=== PATIENT | female | born 1965 | race Caucasian/White ===

== ENCOUNTER 2016-11-12 10:52 | Emergency (ER) | payer OTHER ==
[~2016-11-12] VITALS: Ht 162.6 cm; Wt 65.0 kg
[~2016-11-12 10:52] MED LIST: ESCI1TAB18 PO; NRN100 PO; RSP1 PO
[2016-11-12 11:00] VITALS: TEMP 36.6; Ht 162.6 cm; Wt 65.0 kg
[2016-11-12] MEDS ORDERED: VENL1CAP92 PO (11:02)
[2016-11-12] MEDS ORDERED: ONDANSETRON 4MG OD TAB ONE (12:10)
[2016-11-12 12:14] LABS: HEMATOCRIT 36.9 % (37-47); MEAN CELL VOLUME 95.6 fL (80-100); MEAN CORPUSCULAR HEMOGLOBIN 34.2 pg (25-34); MEAN CORPUSCULAR HGB CONC 35.8 g/dl (32-36); MEAN PLATELET VOLUME 9.5 fL (7.4-10.4); PLATELET COUNT 388 K/uL (130-400); RED BLOOD COUNT 3.86 M/uL (4.2-5.4)
[2016-11-12] MEDS ORDERED: ONDANSETRON 4MG OD TAB PO ONE (12:15)
--- NOTE | 2016-11-12 12:29 | EMERGENCY ROOM VISIT NOTE ---
History Report prepared by Hoda: Nasim Rivera Under the Supervision of: Dr. Kathy Monique D.O. First contact with patient: 11:04 Chief Complaint: MENTAL HEALTH EVALUATION Stated Complaint: MENTAL HEALTH History of Present Illness The patient is a 51 year old female who presents to the Emergency Room with complaints of crying outbursts and feeling paranoid today. The patient has a psychiatric history. She was recently discharged from the [facility] on September. At that time, she was discharged on Effexor and Klonopin. The patient stopped taking these medications a week ago because she did not think they were working. The patient notes that she is interested in getting help and is willing to go back to the [facility] because she wants to get back on a normal routine. She has not been eating in addition to not taking her medications. She thinks being admitted to a facility will help her reestablish a healthier routine. The patient makes one comment about being upset about a problem that is unresolved, however, she does not want to talk about it now. She denies suicidal and homicidal ideation at this time as well as any other medical complaints. Source of History: patient Onset: today Position: other (global) Note: Other associated symptoms: Not eating Denies: suicidal ideation, homicidal ideation, any other medical complaints. Review of Systems See HPI for pertinent positives & negatives. A total of 10 systems reviewed and were otherwise negative. Past Medical & Surgical Medical Problems: (1) Chronic abdominal pain (2) Colitis (3) Colonoscopy (4) Depression (5) Diverticulitis (6) Endoscopy (7) Functional abdominal pain syndrome (8) IRRITABLE BOWEL SYNDROME (9) Orthopedic Surgery (10) REFLUX ESOPHAGITIS Family History Diabetes mellitus Heart disease Social History Smoking Status: Current Every Day Smoker Alcohol Use: occasionally Drug Use: none Marital Status: Housing Status: lives with family Occupation Status: unemployed Current/Historical Medications Scheduled Clonazepam (Clonazepam), 1 MG PO BID Gabapentin (Gabapentin), 300 MG PO HS Perphenazine (Trilafon), 4 MG PO BID Perphenazine (Trilafon), 2 MG PO HS Venlafaxine Hcl (Effexor Xr), 37.5 MG PO TID Scheduled PRN Acetaminophen (Tylenol), 500 MG PO Q6H PRN for Pain or Fever Ondasetron Odt (Zofran Odt), 4-8 MG UT Q6H PRN for Nausea Promethazine HCl (Promethazine HCl), 25 MG PO Q8 PRN for Nausea or Vomiting Trazodone Hcl (Desyrel), 50 MG PO HS PRN for Sleep Allergies Coded Allergies: Adhesives (Verified Allergy, Intermediate, PAPER TAPE - SKIN IRRITATION, ) Amoxicillin (Verified Adverse Reaction, Unknown, Abdominal pain and nausea , 11/12/16) Clavulanic Acid (Verified Adverse Reaction, Unknown, Abdominal pain and nausea, 11/12/16) Physical Exam Vital Signs Date Time Temp Pulse Resp B/P Pulse Ox O2 Delivery O2 Flow Rate FiO2 11/12/16 15:15 102 18 126/70 97 11/12/16 13:00 100 16 110/73 98 11/12/16 11:00 36.6 100 20 147/93 97 Room Air Physical Exam General: Pleasant, cooperative on exam HEENT: Head - normocephalic and atraumatic Pupils are equal, round, and reactive to light. Extraocular eye muscles are intact, and sclera are anicteric. Nose - moist nasal mucosa without discharge. Mouth - moist buccal mucosa. Oropharynx is nonerythematous and there is no tonsillar exudate or edema noted. Neck: Supple; no JVD, nuchal rigidity, cervical lymphadenopathy. Heart: Regular rate and rhythm. There is a normal S1 and S2 with no murmurs, clicks, or gallops appreciated. Lungs: Clear to auscultation bilaterally with no wheezes, rales, or rhonchi. Abdomen: Soft, completely nontender, nondistended, with good bowel sounds. There are no palpable pulsatile masses or hepatosplenomegaly. There is no guarding, rigidity, or rebound noted. Extremities: No evidence of cyanosis, clubbing, or edema. There are easily palpable peripheral pulses. Skin: warm and dry with good turgor and no rashes. Psych: Tangential thought process, slightly hyperverbal, denies suicidal or homicidal ideation. Medical Decision & Procedures Laboratory Results 11/12/16 11:50 11/12/16 11:50 Test 11/12/16 00:00 11/12/16 11:50 Urine Opiates Screen NEG (NEG) Urine Methadone, Qualitative NEG (NEG) Urine Barbiturates NEG (NEG) Urine Phencyclidine (PCP) Level NEG (NEG) Ur Amphetamine/Methamphetamine NEG (NEG) MDMA (Ecstasy) Screen NEG (NEG) Urine Benzodiazepines Screen NEG (NEG) Urine Cocaine Metabolite NEG (NEG) Urine Marijuana (THC) POS (NEG) Red Blood Count 3.86 M/uL (4.2-5.4) Mean Corpuscular Volume 95.6 fL (80-100) Mean Corpuscular Hemoglobin 34.2 pg (25-34) Mean Corpuscular Hemoglobin Concent 35.8 g/dl (32-36) RDW Standard Deviation 44.6 fL (36.4-46.3) RDW Coefficient of Variation 12.9 % (11.5-14.5) Mean Platelet Volume 9.5 fL (7.4-10.4) Anion Gap 10.0 mmol/L (3-11) Est Creatinine Clear Calc Drug Dose 76.7 ml/min Estimated GFR () 107.0 Estimated GFR (Non- 92.3 BUN/Creatinine Ratio 9.5 (10-20) Calcium Level 8.6 mg/dl (8.5-10.1) Total Bilirubin 0.6 mg/dl (0.2-1) Direct Bilirubin 0.1 mg/dl (0-0.2) Aspartate Amino Transf (AST/SGOT) 8 U/L (15-37) Alanine Aminotransferase (ALT/SGPT) 19 U/L (12-78) Alkaline Phosphatase 53 U/L (45-117) Total Protein 7.1 gm/dl (6.4-8.2) Albumin 4.0 gm/dl (3.4-5.0) Thyroid Stimulating Hormone (TSH) 0.863 uIu/ml (0.300-4.500) Salicylates Level 2.5 mg/dl (2.8-20) Acetaminophen Level < 2 ug/ml (10-30) Ethyl Alcohol mg/dL < 3.0 mg/dl (0-3) Laboratory results per my review. Medications Administered Medications (Trade) Dose Ordered Sig/Rafia Route Start Time Stop Time Status Last Admin Dose Admin Ondansetron HCl (Zofran Odt) 4 mg ONE ONCE PO 11/12/16 12:15 11/12/16 12:16 DC 11/12/16 12:15 4 MG Procedure Medications: Zofran Odt .ROUTE, Zofran Odt PO. ED Course 1145: Past medical records reviewed. The patient was evaluated in room A6. A complete history and physical exam was performed. Labs were drawn as above. 1215: The patient complained of some nausea and I Ordered Zofran Odt 4 mg 1305: At this time, the patient was medically cleared and a referral was sent to the [facility]. 1345: At this time, the patient was accepted by the [facility]. They will arrange for transport. Medical Decision The patient is a 51 year old female who presents to the ED with crying outbursts and paranoia. Differential diagnosis includes acute psychosis, medication noncompliance, mood disorder, and thought disorder. Labs: Normal white count, stable h&h, normal TSH, normal LFTs, normal glucose and renal function, Salicylate 2.2, Tylenol less than 2, Alcohol less than 3, Tox screen positive for marijuana. This is a patient with a history of previous admissions for inpatient psychiatric care. She is not currently taking her medications. She is requesting inpatient treatment to get back on her meds. Patient has some paranoia and has made some questionable statements about suicide and homicide. She is currently willing to admit herself voluntarily to the [facility]. Impression Primary Impression: Mood disorder Additional Impression: Noncompliance with medications Scribe Attestation The scribe's documentation has been prepared under my direction and personally reviewed by me in its entirety. I confirm that the note above accurately reflects all work, treatment, procedures, and medical decision making performed by me. Departure Information Dispostion [facility] Acute Care ([place]) Referrals Yonathan Carlos M.D. (PCP) Patient Instructions My [facility] Problem Qualifiers
[2016-11-12 12:34] LABS: BUN/CREATININE RATIO 9.5 (10-20); CALCIUM 8.6 mg/dl (8.5-10.1); CREATININE 0.75 mg/dl (0.60-1.20)
[2016-11-12 12:45] LABS: THYROID STIMULATING HORMONE 0.863 uIu/ml (0.300-4.500)
[2016-11-12 12:48] LABS: BENZODIAZEPINE, URINE NEG (NEG); COCAINE,URINE NEG (NEG); PHENCYCLIDINE, URINE NEG (NEG)
[2016-11-12 12:53] LABS: ACETAMINOPHEN < 2 ug/ml (10-30)
[2016-11-12 15:15] VITALS: BP 126/70; PULSE 102; O2SAT 97
[2016-12-22] MEDS ORDERED: PERP1TAB10 PO (11:02)
[2016-12-22] MEDS ORDERED: PERP1TAB5 PO (11:02)
[2016-12-22] MEDS ORDERED: PROM25TA16 PO (11:36)
[2016-12-22] MEDS ORDERED: TYLOTC500 PO (12:48)
[2016-12-29] MEDS ORDERED: FLUO20CA36 PO (08:28)
== END 2016-11-12 15:17 ==
LOC: EDBD 10:52 → C.EDA 10:54
DX: F39 Unspecified mood [affective] disorder (principal); Z91.14 Patient's other noncompliance with medication regimen; F17.200 Nicotine dependence, unspecified, uncomplicated; G89.29 Other chronic pain; R10.9 Unspecified abdominal pain; K58.9 Irritable bowel syndrome, unspecified

== ENCOUNTER 2016-12-11 10:55 | Emergency (ER) | payer OTHER ==
[~2016-12-11] VITALS: Ht 157.5 cm; Wt 55.3 kg
[~2016-12-11 10:55] MED LIST changes: -ESCI1TAB18 PO; -RSP1 PO; +VENL1CAP92 PO
[2016-12-11] MEDS ORDERED: SODIUM CHLORIDE 0.9% 1000ML 1,000 ML IV STA (11:26)
[2016-12-11 11:27] VITALS: Ht 157.5 cm; Wt 55.3 kg
[2016-12-11 11:28] VITALS: O2SAT 99
[2016-12-11] MEDS ORDERED: VENL75CA PO (11:28)
[2016-12-11] MEDS ORDERED: LORAZEPAM 2 MG/ML 1 ML VIAL IV STA ×2 (11:37→16:04)
[2016-12-11 11:40] LABS: URINE APPEARANCE CLOUDY (CLEAR); URINE BILIRUBIN NEG (NEG); URINE COLOR ORANGE; URINE EPITHELIAL CELL AUTO >30 /lpf (0-5); URINE NITRITE NEG (NEG); URINE PH 6.5 (4.5-7.5); URINE SPECIFIC GRAVITY 1.001 (1.000-1.030); UROBILINOGEN NEG (NEG)
[2016-12-11 11:42] LABS: MANUAL MICROSCOPIC REQUIRED? NO; REVIEW REQ? YES
[2016-12-11 12:17] LABS: BASO % 0.2 %; BASO ABS # 0.02 K/uL (0-0.2); COMPLETE YES; EOS % 1.2 %; HEMATOCRIT 37.4 % (37-47); IG% 0.3 %; LYMPH ABS # 2.62 K/uL (1.2-3.4); MEAN CELL VOLUME 95.7 fL (80-100); MEAN CORPUSCULAR HEMOGLOBIN 34.3 pg (25-34); MEAN CORPUSCULAR HGB CONC 35.8 g/dl (32-36); MEAN PLATELET VOLUME 9.4 fL (7.4-10.4); MONO % 5.7 %; NEUT % 69.6 %; PLATELET COUNT 427 K/uL (130-400); RED BLOOD COUNT 3.91 M/uL (4.2-5.4); WHITE BLOOD COUNT 11.37 K/uL (4.8-10.8)
[2016-12-11 12:28] LABS: INR 0.9 (0.9-1.1); PARTIAL THROMBOPLASTIN RATIO 0.9; PROTHROMBIN TIME (PATIENT) 9.9 SECONDS (9.0-12.0)
[2016-12-11] MEDS ORDERED: CALCIUM CARBONATE 500 MG CHEWABLE PO STA (12:30)
[2016-12-11 12:36] LABS: ALT/SGPT 18 U/L (12-78); BLOOD UREA NITROGEN 14 mg/dl (7-18); BUN/CREATININE RATIO 19.3 (10-20); CALCIUM 9.4 mg/dl (8.5-10.1); CARBON DIOXIDE 20 mmol/L (21-32); CHLORIDE 107 mmol/L (98-107); CREATININE 0.73 mg/dl (0.60-1.20); GLUCOSE 100 mg/dl (70-99); MAGNESIUM 2.2 mg/dl (1.8-2.4); POTASSIUM 3.9 mmol/L (3.5-5.1); SODIUM 140 mmol/L (136-145)
[2016-12-11 12:47] LABS: ALKALINE PHOSPHATASE 52 U/L (45-117); AST/SGOT 9 U/L (15-37)
[2016-12-11 17:59] VITALS: BP 115/82; PULSE 80; TEMP 36.6; O2SAT 99
--- NOTE | 2016-12-11 18:46 | EMERGENCY ROOM VISIT NOTE ---
History Report prepared by Hoda: Lane Posada Under the Supervision of: Dr. Pool Rios M.D. First contact with patient: 11:24 Chief Complaint: ANXIETY Stated Complaint: ANXIETY History of Present Illness The patient is a 51 year old female who presents to the Emergency Room with complaints of worsening anxiety that began 2 years ago. She was on the phone with an acute clinic nurse and was suggested to come to the ER. The patient states that she has been "distraught" and cannot function anymore. She says that she needs someone to talk to. She says that her triggers for her anxiety are nonstop. She states that she is going through major life change where she is moving out of her house that she has been living in for 20 years. She is scared of the idea of being unsafe and uncomfortable in a new place. She is scared of living in [place]. She notes diaphoresis with being worked up. The patient has been to the [facility] twice as an inpatient. The patient states that she has undiagnosed neuropathy with vomiting and abdominal pain. She says she has PTSD secondary to many life experiences. Patient denies LOC, headache, fevers, chills, visual changes, neck pain, chest pain, breathing difficulties, nausea, current vomiting, current abdominal pain, back pain, melena, hematochezia, urinary symptoms, numbness, weakness, lymphadenopathy, rash, or other complaints. She denies any thoughts of hurting herself or others. Source of History: patient Onset: two years ago Position: other (global) Symptom Intensity: moderate Quality: other (anxiety) Timing: worsening Associated Symptoms: + diaphoresis Review of Systems See HPI for pertinent positives and negatives. A total of ten systems were reviewed and were otherwise negative. Past Medical & Surgical Medical Problems: (1) Chronic abdominal pain (2) Colitis (3) Colonoscopy (4) Depression (5) Diverticulitis (6) Endoscopy (7) Functional abdominal pain syndrome (8) IRRITABLE BOWEL SYNDROME (9) Orthopedic Surgery (10) REFLUX ESOPHAGITIS Family History Diabetes mellitus Heart disease Social History Smoking Status: Never Smoker Smokeless Tobacco Use: No Alcohol Use: none Drug Use: marijuana Marital Status: Housing Status: lives with family Occupation Status: unemployed Current/Historical Medications Scheduled Clonazepam (Clonazepam), 1 MG PO BID Gabapentin (Gabapentin), 200 MG PO BID Perphenazine (Trilafon), 4 MG PO BID Perphenazine (Trilafon), 2 MG PO QPM Venlafaxine Hcl (Effexor Xr), 37.5 MG PO QAM Venlafaxine Hcl (Effexor Xr), 75 MG PO UD Scheduled PRN Acetaminophen (Tylenol), 500 MG PO Q6H PRN for Pain or Fever Ondasetron Odt (Zofran Odt), 4-8 MG UT Q6H PRN for Nausea Promethazine HCl (Promethazine HCl), 25 MG PO Q8 PRN for Nausea or Vomiting Trazodone Hcl (Desyrel), 50 MG PO HS PRN for Sleep Allergies Coded Allergies: Adhesives (Verified Allergy, Intermediate, PAPER TAPE - SKIN IRRITATION, ) Amoxicillin (Verified Adverse Reaction, Unknown, Abdominal pain and nausea , 12/11/16) Clavulanic Acid (Verified Adverse Reaction, Unknown, Abdominal pain and nausea, 12/11/16) Physical Exam Vital Signs Date Time Temp Pulse Resp B/P Pulse Ox O2 Delivery O2 Flow Rate FiO2 12/11/16 17:59 36.6 80 20 115/82 99 12/11/16 12:07 80 20 115/82 99 Room Air 12/11/16 11:28 99 Room Air 12/11/16 10:56 36.6 86 18 108/76 99 Room Air Physical Exam GENERAL: Awake, alert, well appearing, no distress. HENT: Normocephalic, atraumatic. TM's normal. Oropharynx unremarkable. EYES: PERRL. EOMI. Normal conjunctiva. Sclera non-icteric. NECK: Supple. No nuchal rigidity. FROM. No JVD or bruit. RESPIRATORY: CTA CARDIAC: RRR. No murmur. ABDOMEN: Soft, non distended. No tenderness to palpation. No rebound or guarding. No masses. MUSCULOSKELETAL: Unremarkable. No edema. No discoloration. Gross motor strength symmetric. NEURO: Cranial nerves 2-12 grossly intact. Normal sensorium. No sensory or motor deficits noted. Speech normal. No pronator drift. SKIN: No rash or jaundice noted. LYMPH: No adenopathy. PSYCH: Easily agitated, extremely anxious mood. No suicidal ideation. No homicidal ideation. Medical Decision & Procedures Laboratory Results 12/11/16 12:05 Red Blood Count 3.91, Mean Corpuscular Volume 95.7, Mean Corpuscular Hemoglobin 34.3, Mean Corpuscular Hemoglobin Concent 35.8, Mean Platelet Volume 9.4, Neutrophils (%) (Auto) 69.6, Lymphocytes (%) (Auto) 23.0, Monocytes (%) (Auto) 5.7, Eosinophils (%) (Auto) 1.2, Basophils (%) (Auto) 0.2, Neutrophils # (Auto) 7.91, Lymphocytes # (Auto) 2.62, Monocytes # (Auto) 0.65, Eosinophils # (Auto) 0.14, Basophils # (Auto) 0.02 12/11/16 12:05 Test 12/11/16 11:03 12/11/16 12:05 Urine Color ORANGE Urine Appearance CLOUDY (CLEAR) Urine pH 6.5 (4.5-7.5) Urine Specific [place] 1.001 (1.000-1.030) Urine Protein NEG (NEG) Urine Glucose (UA) NEG (NEG) Urine Ketones NEG (NEG) Urine Occult Blood 3+ (NEG) Urine Nitrite NEG (NEG) Urine Bilirubin NEG (NEG) Urine Urobilinogen NEG (NEG) Urine Leukocyte Esterase NEG (NEG) Urine WBC (Auto) 1-5 /hpf (0-5) Urine RBC (Auto) >30 /hpf (0-4) Urine Hyaline Casts (Auto) 1-5 /lpf (0-5) Urine Epithelial Cells (Auto) >30 /lpf (0-5) Urine Bacteria (Auto) NEG (NEG) Urine Yeast (Auto) (NONE PRSENT) White Blood Count 11.37 K/uL (4.8-10.8) Red Blood Count 3.91 M/uL (4.2-5.4) Hemoglobin 13.4 g/dL (12.0-16.0) Hematocrit 37.4 % (37-47) Mean Corpuscular Volume 95.7 fL (80-100) Mean Corpuscular Hemoglobin 34.3 pg (25-34) Mean Corpuscular Hemoglobin Concent 35.8 g/dl (32-36) Platelet Count 427 K/uL (130-400) Mean Platelet Volume 9.4 fL (7.4-10.4) Neutrophils (%) (Auto) 69.6 % Lymphocytes (%) (Auto) 23.0 % Monocytes (%) (Auto) 5.7 % Eosinophils (%) (Auto) 1.2 % Basophils (%) (Auto) 0.2 % Neutrophils # (Auto) 7.91 K/uL (1.4-6.5) Lymphocytes # (Auto) 2.62 K/uL (1.2-3.4) Monocytes # (Auto) 0.65 K/uL (0.11-0.59) Eosinophils # (Auto) 0.14 K/uL (0-0.5) Basophils # (Auto) 0.02 K/uL (0-0.2) RDW Standard Deviation 50.9 fL (36.4-46.3) RDW Coefficient of Variation 14.6 % (11.5-14.5) Immature Granulocyte % (Auto) 0.3 % Immature Granulocyte # (Auto) 0.03 K/uL (0.00-0.02) Prothrombin Time 9.9 SECONDS (9.0-12.0) Prothromb Time International Ratio 0.9 (0.9-1.1) Activated Partial Thromboplast Time 24.6 SECONDS (21.0-31.0) Partial Thromboplastin Ratio 0.9 Anion Gap 13.0 mmol/L (3-11) Est Creatinine Clear Calc Drug Dose 72.1 ml/min Estimated GFR () 110.5 Estimated GFR (Non- 95.4 BUN/Creatinine Ratio 19.3 (10-20) Calcium Level 9.4 mg/dl (8.5-10.1) Magnesium Level 2.2 mg/dl (1.8-2.4) Total Bilirubin 0.2 mg/dl (0.2-1) Direct Bilirubin < 0.1 mg/dl (0-0.2) Aspartate Amino Transf (AST/SGOT) 9 U/L (15-37) Alanine Aminotransferase (ALT/SGPT) 18 U/L (12-78) Alkaline Phosphatase 52 U/L (45-117) Total Protein 7.2 gm/dl (6.4-8.2) Albumin 3.9 gm/dl (3.4-5.0) Lipase 166 U/L (73-393) Thyroid Stimulating Hormone (TSH) 1.400 uIu/ml (0.300-4.500) Laboratory results reviewed by me Medications Administered Medications (Trade) Dose Ordered Sig/Rafia Route Start Time Stop Time Status Last Admin Dose Admin Sodium Chloride (Nss 1000ml) 1,000 ml @ 999 mls/hr Q1H1M STAT IV 12/11/16 11:26 12/11/16 12:26 DC 12/11/16 12:06 999 MLS/HR Lorazepam (Ativan Inj) 1 mg NOW STAT IV 12/11/16 11:37 12/11/16 11:40 DC 12/11/16 12:06 1 MG Calcium Carbonate (Tums Chew Tab) 1,500 mg NOW STAT PO 12/11/16 12:30 12/11/16 12:31 DC 12/11/16 12:37 1,500 MG Lorazepam (Ativan Inj) 1 mg NOW STAT IV 12/11/16 16:04 12/11/16 16:05 DC 12/11/16 16:15 1 MG ECG Indication: other (anxiety) Rate (beats per minute): 82 Rhythm: normal sinus Findings: Q waves (Septal), no acute ischemic change ED Course 1124: The patient was evaluated in room C10. A complete history and physical exam was performed. 1126: Sodium Chloride 1000 ml @ 999 mls/hr IV 1137: Lorazepam 1 mg IV 1225: The patient asked for Tums at this time. 1230: Tums Chew Tab 1500 mg PO 1604: Lorazepam 1 mg IV 1605: We are waiting to hear back from the [facility] for the patient. She was more anxious, so we gave her more Lorazepam. 1652: The patient was accepted to the [facility]. We are awaiting her ride. Medical Decision Triage Nursing notes reviewed. The patient's presentation and history were concerning for severe anxiety. Etiologies such as mood disorder, toxicologic, infection, hypoglycemia, electrolyte abnormalities, cardiac sources, intracerebral event, neurologic, as well as others were entertained. Patient was evaluated. She clearly outlined that she was not here for her GI symptoms although that has been an ongoing issue for her. Currently her GI symptoms are minimal. She is very anxious. She feels dehydrated. The patient also did want something for anxiety. The patient was treated with Ativan 1 mg IV 2 during her time in the emergency department. She is doing well with this. The patient was evaluated by psychiatric case management. The patient was referred to the [facility]. Her blood work showed a subtle leukocytosis at 11, 000. RBCs are noted on urinalysis but no signs of infection otherwise. The patient had unremarkable chemistries and LFTs. The patient was accepted at the [facility]. Urine culture was sent. Patient was transferred via secure measures to the [facility] for further evaluation. By the evaluation outlined above other emergent etiologies such as those listed in the differential, as well as others, were deemed relatively unlikely. The patient was informed about the findings as listed above. All questions were answered and she was pleased with the treatment. Return instructions were outlined and the patient was discharged in stable condition. The chart was completed utilizing [employer] voice recognition software. Grammatical errors, random word insertions, pronoun errors, and incomplete sentences are an occasional consequence of this system due to software limitations, ambient noise, and hardware issues. Any formal questions or concerns about the content, text, or information contained within the body of this dictation should be directly addressed to the physician for clarification. Impression Primary Impression: Mood disorder Scribe Attestation The scribe's documentation has been prepared under my direction and personally reviewed by me in its entirety. I confirm that the note above accurately reflects all work, treatment, procedures, and medical decision making performed by me. Departure Information Dispostion Mental Health Acute Care Referrals Yonathan Carlos M.D. (PCP) Patient Instructions My [facility]
[2016-12-22] MEDS ORDERED: PERP1TAB10 PO (11:02)
[2016-12-22] MEDS ORDERED: PERP1TAB5 PO (11:02)
[2016-12-22] MEDS ORDERED: PROM25TA16 PO (11:36)
[2016-12-22] MEDS ORDERED: TYLOTC500 PO (12:48)
[2016-12-29] MEDS ORDERED: FLUO20CA36 PO (08:28)
== END 2016-12-11 18:01 ==
LOC: EDBD 10:55 → C.EDC 10:56 → C.EDA 18:01
DX: F32.9 Major depressive disorder, single episode, unspecified (principal); K58.9 Irritable bowel syndrome, unspecified

== ENCOUNTER 2016-12-18 10:47 | Emergency (ER) | payer OTHER ==
[~2016-12-18] VITALS: Ht 157.5 cm; Wt 59.0 kg
[~2016-12-18 10:47] MED LIST changes: +VENL75CA PO
[2016-12-18 10:54] VITALS: TEMP 36.9; Ht 157.5 cm; Wt 59.0 kg
[2016-12-18] MEDS ORDERED: ASPI-391 (11:13)
[2016-12-18] MEDS ORDERED: MIRT15TA2 PO (11:13)
[2016-12-18] MEDS ORDERED: SODIUM CHLORIDE 0.9% 1000ML 1,000 ML IV STA (11:59)
[2016-12-18] MEDS ORDERED: LORAZEPAM 2 MG/ML 1 ML VIAL IV STA (11:59)
[2016-12-18] MEDS ORDERED: KETOROLAC TROMETHAMINE 30 MG/ML VIAL IV STA (11:59)
[2016-12-18] MEDS ORDERED: DiphenhydrAMINE HCL 50 MG/ML VIAL IV STA (11:59)
[2016-12-18] MEDS ORDERED: PROCHLORPERAZINE 5 MG/ML 2 ML VIAL IM STA (11:59)
[2016-12-18] MEDS ORDERED: DEXAMETHASONE SOD INJ 4 MG/ML VIAL IV STA (11:59)
[2016-12-18 12:19] LABS: URINE APPEARANCE CLEAR (CLEAR); URINE BILIRUBIN NEG (NEG); URINE COLOR YELLOW; URINE NITRITE NEG (NEG); URINE SPECIFIC GRAVITY 1.007 (1.000-1.030); UROBILINOGEN NEG (NEG)
[2016-12-18 12:20] LABS: MANUAL MICROSCOPIC REQUIRED? NO; REVIEW REQ? NO
[2016-12-18 12:51] LABS: BENZODIAZEPINE, URINE NEG (NEG); COCAINE,URINE NEG (NEG); PHENCYCLIDINE, URINE NEG (NEG)
[2016-12-18 12:52] LABS: BASO % 0.3 %; BASO ABS # 0.02 K/uL (0-0.2); COMPLETE YES; EOS % 4.5 %; HEMATOCRIT 32.2 % (37-47); LYMPH % 36.2 %; LYMPH ABS # 2.68 K/uL (1.2-3.4); MEAN CELL VOLUME 94.2 fL (80-100); MEAN CORPUSCULAR HGB CONC 35.1 g/dl (32-36); MEAN PLATELET VOLUME 9.3 fL (7.4-10.4); MONO % 6.6 %; NEUT % 52.4 %; PLATELET COUNT 365 K/uL (130-400); RED BLOOD COUNT 3.42 M/uL (4.2-5.4)
--- NOTE | 2016-12-18 13:10 | DIAGNOSTIC IMAGING REPORT ---
CT HEAD WITHOUT CONTRAST (CT) CLINICAL HISTORY: Severe headache COMPARISON STUDY: 09/03/2013 TECHNIQUE: Axial CT of the brain is performed from the vertex to the skull base. IV contrast was not administered for this examination. CT DOSE: 537.48 mGy.cm FINDINGS: No intra or extra-axial mass lesions are visualized. There is no CT evidence of acute cortical infarction. There is no evidence of midline shift. There is no acute hemorrhage. No calvarial fractures are visualized. There is no evidence of pathologic ventricular dilatation. There is no evidence of acute sinusitis IMPRESSION: Normal noncontrast head CT for age. Electronically signed by: Milton Fragoso M.D. 12/18/2016 1:09 PM Dictated Date/Time: 12/18/2016 1:08 PM
[2016-12-18 13:19] LABS: BUN/CREATININE RATIO 26.2 (10-20); CALCIUM 8.4 mg/dl (8.5-10.1); CREATININE 0.64 mg/dl (0.60-1.20)
[2016-12-18 13:30] LABS: THYROID STIMULATING HORMONE 1.59 uIu/ml (0.300-4.500)
[2016-12-18] MEDS ORDERED: IBUP-103 PO (13:47)
[2016-12-18 13:48] VITALS: BP 104/72; PULSE 82; O2SAT 98
--- NOTE | 2016-12-20 16:15 | EMERGENCY ROOM VISIT NOTE ---
ED Visit Note First contact with patient: 11:50 CHIEF COMPLAINT: Migraine headache. HISTORY OF PRESENT ILLNESS: Ms. Ann is a 51 year-old white female who ambulates into the ED via complaining of a migraine headache. She reports a acute onset of a severe headache that started 4 days ago after she received notification that she was going to be removed from her housing. The pain is constant and severe in severity. She denies any previous history of headaches and reports this is the worst headache of her life. Currently she describes the headache as a viselike pressure sensation to the top of her head. She rates the pain a 8/10. The pain is nonradiating. She reports she has been taking ibuprofen without relief of pain. She has not identified any alleviating factors related to the pain. She has not identified any aggravating factors related to the pain. There is been associated light sensitivity, nausea but no vomiting. She denies fevers, chills or sweats, skin eruptions, skin color changes, dizziness, lightheadedness, recent head trauma, visual changes, hearing changes , difficulty speaking, difficulty swallowing, difficulty ambulating/ coordinating body, upper respiratory tract symptoms, sinus congestion, recent dental trauma or dental work, sore throat, neck pain/stiffness, voice changes, hearing changes, chest pain, shortness of breath, abdominal pain, extremity weakness/numbness/tingling. REVIEW OF SYSTEMS: As noted above in History of Present Illness; all body systems were reviewed with the patient and found to be negative unless noted above otherwise. PAST MEDICAL HISTORY: (1) Chronic abdominal pain (2) Colitis (3) Colonoscopy (4) Depression (5) Diverticulitis (6) Endoscopy (7) Functional abdominal pain syndrome (8) IRRITABLE BOWEL SYNDROME (9) Orthopedic Surgery (10) REFLUX ESOPHAGITIS CURRENT MEDICATIONS: Medications Dose Route/Sig Max Daily Dose Days Date Category Dose Instructions Excedrin Extra Strength (Afmaqrf-Anzakuybwgqjl-Iajpxpvt) 1 Tab Tab 12/18/16 Reported Remeron Soltab (Mirtazapine) 15 Mg Soltab 15 Mg PO 12/18/16 Reported Effexor Xr (Venlafaxine Hcl) 75 Mg Cap 75 Mg PO UD 12/11/16 Reported Trilafon (Perphenazine) 2 Mg Tab 2 Mg PO QPM 11/12/16 Reported TAKE WITH 4 MG TOTAL DOSE QPM 6MG Trilafon (Perphenazine) 4 Mg Tab 4 Mg PO BID 11/12/16 Reported Effexor Xr (Venlafaxine Hcl) 37.5 Mg Cap 37.5 Mg PO QAM 11/12/16 Reported Desyrel (Trazodone Hcl) 50 Mg Tab 50 Mg PO HS PRN 10/13/16 Reported Promethazine HCl 25 Mg Tab 25 Mg PO Q8 PRN 05/05/16 Reported Gabapentin 100 Mg Cap 900 Mg PO DAILY 04/21/16 Reported Tylenol (Acetaminophen) 500 Mg Tab 500 Mg PO Q6H PRN 12/28/15 Reported Zofran Odt (Ondansetron HCl) 4 Mg Tab 4-8 Mg UT Q6H PRN 11/25/14 Reported Clonazepam 1 Mg Tab 1 Mg PO BID 11/25/14 Reported Advil (Ibuprofen) 200 Mg Tab 400-600 Mg PO Q6H PRN 5 12/18/16 Rx ALLERGIES TO MEDICATIONS: Augmentin. SOCIAL HISTORY: Patient is not employed; she feels safe in her home environment ; she denies tobacco and alcohol use. PHYSICAL EXAM: Vital Signs: Date Time Temp Pulse Resp B/P Pulse Ox O2 Delivery O2 Flow Rate FiO2 12/18/16 13:48 82 16 104/72 98 Room Air 12/18/16 13:20 79 12/18/16 13:13 78 18 171/97 99 Room Air 12/18/16 12:32 81 18 109/73 99 Room Air 12/18/16 10:54 36.9 83 16 100/66 94 Room Air GENERAL: 51 year-old white female in moderate distress due to pain, afebrile and hemodynamically stable. Found lying in a darkened room with sunglasses on. NEUROLOGIC: Awake, alert and oriented to person place and time. Answering questions appropriately and following commands. Cranial nerves II-XII grossly intact. No focal neurologic deficits noted. Romberg test negative. Pronator drift test negative. Short-term and long-term recall. Normal rapid only movements of the hands and fingers. Refuses a spell her count backwards. Patient is very anxious. SKIN: Warm, dry and pink. No rashes, lesions or soft tissue trauma noted. HEENT: Normocephalic, atraumatic. No erythema or tenderness over the frontal maxillary sinuses. External ear is nontender. Auditory canals are not erythematous or edematous. PERRLA. EOMI without nystagmus. Funduscopic examination shows a normal optic disc and no signs of increased intracranial pressure. Sclerae white and conjunctiva is pink without drainage. No signs of facial trauma. No malocclusion. Airway patent. Speech is clear. Posterior pharyngeal area is not erythematous or edematous. No JVD. Trachea midline. BACK: No tenderness over the cervical, thoracic or lumbar bony spines. No tenderness to trauma the paraspinous musculature and no palpable spasm. Full range of motion of the cervical spine. No meningismus. No CVA tenderness.. THORAX: Lungs clear to auscultation and equal bilaterally with no wheezing, crackles, rhonchi or stridor and equal chest wall movements. HEART: Regular rate and rhythm with no murmurs, rubs or gallops. ABDOMEN: Soft and nontender with bowel sounds present in all quadrants; no rigidity, rebound tenderness, organomegaly or guarding. MUSCULOSKELETAL: Full range of motion of all joints without any significant discomfort and the gait is normal. ED COURSE: Patient is assessed with history and physical examination. Patient was hydrated with normal saline, she received 30 mg of Toradol IV, 10 mg of Decadron IV, 10 mg of Compazine IV and 30 mg of Toradol IV. Patient was reassessed multiple times during her stay in the emergency department. Patient's case was reviewed with Dr. Lemus; we agreed on diagnostic approach , treatment, disposition and plan. Patient was educated about her condition and instructed on her treatment plan; she verbalized understanding and agreement with this plan. CLINICAL IMPRESSION: Anxiety in acute stress reaction DECISION MAKIN-year-old female who presents for evaluation of headache. She is afebrile, well appearing, and hemodynamically stable. She has no signs of a sinus, dental , or ear infection and no evidence of meningismus. She is neurologically intact. I do not suspect a headache to be secondary to a subarachnoid hemorrhage, meningitis, encephalitis, or intracranial mass lesion. DISPOSITION: Patient was discharged to home in stable condition; she verbalizes understanding and agreement with this plan. On discharge patient was reassessed and reported her pain at a level of 4/10 scale which was an improvement of a XX on admission to the department. DISCHARGE INSTRUCTIONS: Rest at home, in a quiet darkened room and allow the medication to work for the pain. Continue to follow up current treatment plan prescribed by your physician for your migraine headaches. See your own doctor in follow-up this week for continued care and treatment. Return to the emergency department as needed or in accordance with her pain management plan.
[2016-12-22] MEDS ORDERED: PERP1TAB10 PO (11:02)
[2016-12-22] MEDS ORDERED: PERP1TAB5 PO (11:02)
[2016-12-22] MEDS ORDERED: PROM25TA16 PO (11:36)
[2016-12-22] MEDS ORDERED: TYLOTC500 PO (12:48)
[2016-12-29] MEDS ORDERED: FLUO20CA36 PO (08:28)
== END 2016-12-18 14:10 | disposition home or self-care (01) ==
LOC: C.EDB 10:48
DX: G43.909 Migraine, unspecified, not intractable, without status migrainosus (principal); F41.9 Anxiety disorder, unspecified; F43.9 Reaction to severe stress, unspecified; F32.9 Major depressive disorder, single episode, unspecified; K58.9 Irritable bowel syndrome, unspecified; K21.0 Gastro-esophageal reflux disease with esophagitis; Z79.899 Other long term (current) drug therapy

== ENCOUNTER 2016-12-22 14:31 | Inpatient (IN) | payer OTHER ==
[~2016-12-22] VITALS: Ht 157.5 cm; Wt 59.4 kg
[~2016-12-22 14:31] MED LIST changes: +ASPI-391; +IBUP-103 PO; +MIRT15TA2 PO; +PERP1TAB10 PO; +PERP1TAB5 PO; +PROM25TA16 PO; +TYLOTC500 PO
[2016-12-22] MEDS ORDERED: IBUP-103 PO (16:53)
[2016-12-22] MEDS ORDERED: GABA1CAP4 PO (16:53)
[2016-12-22] MEDS ORDERED: MIRT15TA3 PO (16:53)
[2016-12-22] MEDS ORDERED: SODIUM CHLORIDE 0.9% 1000ML 1,000 ML IV STA (18:29)
[2016-12-22] MEDS ORDERED: PROCHLORPERAZINE 5 MG/ML 2 ML VIAL IV STA (18:29)
[2016-12-22] MEDS ORDERED: LORAZEPAM 2 MG/ML 1 ML VIAL IV STA (18:29)
[2016-12-22] MEDS ORDERED: KETOROLAC TROMETHAMINE 30 MG/ML VIAL IV STA (18:29)
[2016-12-22] MEDS ORDERED: DEXAMETHASONE SOD INJ 10 MG/ML VIAL IV ONE (18:30)
[2016-12-22 18:46] LABS: PREG INTERNAL NEGATIVE QC NEG CLEAR BACKGROUND; PREG INTERNAL POSITIVE QC POS CONTROL LINE; URINE APPEARANCE CLEAR (CLEAR); URINE BILIRUBIN NEG (NEG); URINE COLOR YELLOW; URINE NITRITE NEG (NEG); URINE SPECIFIC GRAVITY 1.008 (1.000-1.030); UROBILINOGEN NEG (NEG)
[2016-12-22 18:47] LABS: MANUAL MICROSCOPIC REQUIRED? NO; REVIEW REQ? NO
[2016-12-22] MEDS ORDERED: ONDA4TAB10 UT (18:52)
[2016-12-22] MEDS ORDERED: KLN1X PO (18:52)
--- NOTE | 2016-12-22 18:55 | DIAGNOSTIC IMAGING REPORT ---
CHEST ONE VIEW PORTABLE CLINICAL HISTORY: Migraine. COMPARISON STUDY: Chest radiograph May 09, 2016 per FINDINGS: Lung volumes are normal. No consolidation is identified. There is no evidence of pulmonary edema. There is no pneumothorax or pleural effusion. Cardiomediastinal silhouette is normal. The appearance of the chest is unchanged. IMPRESSION: No acute cardiopulmonary findings. Electronically signed by: Josias Venegas M.D. 12/22/2016 6:53 PM Dictated Date/Time: 12/22/2016 6:53 PM
[2016-12-22 19:25] LABS: BENZODIAZEPINE, URINE NEG (NEG); COCAINE,URINE NEG (NEG); PHENCYCLIDINE, URINE NEG (NEG)
[2016-12-22 19:54] LABS: BASO % 0.2 %; BASO ABS # 0.02 K/uL (0-0.2); COMPLETE YES; EOS % 3.9 %; HEMATOCRIT 34.3 % (37-47); IG% 0.2 %; LYMPH % 37.6 %; MEAN CELL VOLUME 93.2 fL (80-100); MEAN CORPUSCULAR HEMOGLOBIN 32.9 pg (25-34); MEAN CORPUSCULAR HGB CONC 35.3 g/dl (32-36); MEAN PLATELET VOLUME 9.3 fL (7.4-10.4); MONO % 5.9 %; NEUT % 52.2 %; PLATELET COUNT 403 K/uL (130-400); RED BLOOD COUNT 3.68 M/uL (4.2-5.4); WHITE BLOOD COUNT 9.32 K/uL (4.8-10.8)
[2016-12-22 20:26] LABS: ALT/SGPT 37 U/L (12-78); AST/SGOT 19 U/L (15-37); BLOOD UREA NITROGEN 17 mg/dl (7-18); BUN/CREATININE RATIO 20.1 (10-20); CALCIUM 8.4 mg/dl (8.5-10.1); CARBON DIOXIDE 24 mmol/L (21-32); CHLORIDE 108 mmol/L (98-107); CREATININE 0.86 mg/dl (0.60-1.20); GLUCOSE 89 mg/dl (70-99); POTASSIUM 4.7 mmol/L (3.5-5.1); SODIUM 143 mmol/L (136-145)
[2016-12-22 20:33] LABS: ALB/GLOB RATIO 1.3 (0.9-2); ALKALINE PHOSPHATASE 46 U/L (45-117)
[2016-12-22] MEDS ORDERED: DiphenhydrAMINE HCL 50 MG/ML VIAL IV STA (20:53)
[2016-12-22] MEDS ORDERED: DEXAMETHASONE SOD INJ 10 MG/ML VIAL ONE (21:26)
[2016-12-22] MEDS ORDERED: LORAZEPAM 2 MG/ML 1 ML VIAL ONE (21:27)
[2016-12-22] MEDS ORDERED: PROCHLORPERAZINE 5 MG/ML 2 ML VIAL ONE (21:27)
[2016-12-22] MEDS ORDERED: KETOROLAC TROMETHAMINE 30 MG/ML VIAL ONE (21:27)
[2016-12-22] MEDS ORDERED: TRAZ1TAB5 PO (21:31)
[2016-12-22] MEDS ORDERED: NURSING VERBAL MED ORDER ONE ×2 (22:15→22:30)
[2016-12-22 22:27] VITALS: O2SAT 97
[2016-12-22] MEDS ORDERED: BISMUTH SUBSALICYLATE PER ML OMNICELL CHARGE PO PRN (22:30)
[2016-12-22] MEDS ORDERED: SODIUM CHLORIDE 0.65% NA SOLN 45 ML (OCEAN) PRN (22:30)
[2016-12-22] MEDS ORDERED: ALUMINUM/MAGNESIUM SUSP 30 ML UDC PO PRN (22:30)
[2016-12-22] MEDS ORDERED: MAGNESIUM HYDROXIDE SUSP 30 ML UDC PO PRN (22:30)
--- NOTE | 2016-12-22 22:39 | EMERGENCY ROOM VISIT NOTE ---
History First contact with patient: 16:20 Chief Complaint: HEADACHE Stated Complaint: MIGRAINE, DEPRESSION, STOMACHACHE, WITHDRAW History of Present Illness The patient is a 51 year old female who presents to the Emergency Room with multiple complaints today. She reports a migraine headache for the past 7 days. She is also concerned that she is having a serotonin withdrawal as she has been more agitated, fatigue and has a headache. The patient reports that she feels like she is severely depressed, and is having "horrible angry thoughts ". She denies any suicidal or homicidal thoughts. The patient reports that she has been on multiple antidepressants in the past, including Lexapro, Effexor , and most recently, switch to Remeron. She is also on Trilofon, clonazepam, gabapentin and trazodone. She reports that her current psychiatrist is Dr. Watson. She is in the process of switching her care to [place], and has an appointment scheduled for 01/10/17. When asked about the patient's migraine history, she admits that she has not seen a specialist for her migraines. She denies any recent head injury, sinus congestion, difficulty with speech/ swallowing, paresthesias/numbness or focal weakness. She currently rates her headache a 7 out of 10. Review of Systems HEENT: Denies dizziness, visual problems, hearing loss, tinnitus. Denies difficulty swallowing or oral lesions. PULMONARY: Denies cough, shortness of breath, sputum production or hemoptysis. CARDIOVASCULAR: Denies chest pain, palpitations, dyspnea on exertion, orthopnea or peripheral edema. GASTROINTESTINAL: Denies diarrhea, constipation, nausea, vomiting, or abdominal pain. GENITOURINARY: Denies dysuria, frequency, urgency or nocturia. NEUROLOGIC: Patient reports a history of migraines. MUSCULOSKELETAL: Denies history of joint tenderness/swelling. SKIN: Denies rashes or lesions. PSYCHIATRIC: History of depression. ENDOCRINE: Denies history of diabetes or thyroid disorders. Past Medical/Surgical History Medical Problems: (1) Chronic abdominal pain (2) Colitis (3) Colonoscopy (4) Depression (5) Diverticulitis (6) Endoscopy (7) Functional abdominal pain syndrome (8) IRRITABLE BOWEL SYNDROME (9) Orthopedic Surgery (10) REFLUX ESOPHAGITIS Family History Diabetes mellitus Heart disease Social History Smoking Status: Never Smoker Alcohol Use: none Drug Use: marijuana Marital Status: Housing Status: lives with family Occupation Status: unemployed Current/Historical Medications Scheduled Clonazepam (Clonazepam), 1 MG PO BID Gabapentin (Gabapentin), 300 MG PO TID Mirtazapine (Remeron), 15 MG PO DAILY Perphenazine (Trilafon), 4 MG PO BID Perphenazine (Trilafon), 2 MG PO QPM Scheduled PRN Acetaminophen (Tylenol), 1,000 MG PO [id number] PRN for Pain or Fever Ibuprofen Tab (Advil), 600 MG PO [id number] PRN for Headache or Pain Ondasetron Odt (Zofran Odt), 4-8 MG UT Q6H PRN for Nausea Promethazine HCl (Promethazine HCl), 25 MG PO Q8 PRN for Nausea or Vomiting Trazodone Hcl (Desyrel), 50 MG PO HS PRN for Sleep Allergies Coded Allergies: Adhesives (Verified Allergy, Intermediate, PAPER TAPE - SKIN IRRITATION, ) Amoxicillin (Verified Adverse Reaction, Unknown, Abdominal pain and nausea , 12/18/16) Clavulanic Acid (Verified Adverse Reaction, Unknown, Abdominal pain and nausea, 12/18/16) Physical Exam Vital Signs Date Time Temp Pulse Resp B/P Pulse Ox O2 Delivery O2 Flow Rate FiO2 12/22/16 22:27 100 18 113/80 97 Room Air 12/22/16 21:43 75 18 118/73 98 Room Air 12/22/16 18:45 88 17 119/70 99 Room Air 12/22/16 17:17 93 17 124/82 99 Room Air 12/22/16 14:33 37.3 114 17 143/87 98 Room Air Physical Exam CONSTITUTIONAL: Healthy and well nourished. Patient does not appear in any acute distress. PSYCHIATRIC: Alert and oriented X 3 with positive affect on initial exam. The patient engages in conversation, and does not appear delusional. She answers all questions appropriately. HEENT: Normocephalic, atraumatic. Pupils equal, round and reactive. Ears and nares are clear. No scleral icterus or conjunctival injection/pallor. NECK: Full active range of motion without discomfort. No JVD or carotid bruits. No nuchal rigidity. RESPIRATORY: Clear to auscultation bilaterally with no wheezing, crackles, rhonchi or stridor. CARDIOVASCULAR: Regular rate and rhythm with no murmurs, rubs or gallops. GASTROINTESTINAL: Bowel sounds present in all quadrants. Soft and nontender to palpation. MUSCULOSKELETAL: Full range of motion of all joints without discomfort. INTEGUMENTARY: No rash or other significant dermatologic conditions noted. HEMATOLOGIC: No ecchymosis or petechiae. NEUROLOGIC: No ataxia with ambulation when walking from triage to her examination room. No focal neurologic deficits noted. Negative pronator drift. Normal finger to nose test. Medical Decision & Procedures ER Provider Diagnostic Interpretation: My interpretation of a portable chest x-ray does not show any consolidations or pneumothorax. Radiologist report is as follows: CHEST ONE VIEW PORTABLE CLINICAL HISTORY: Migraine. COMPARISON STUDY: Chest radiograph May 09, 2016 per FINDINGS: Lung volumes are normal. No consolidation is identified. There is no evidence of pulmonary edema. There is no pneumothorax or pleural effusion. Cardiomediastinal silhouette is normal. The appearance of the chest is unchanged. IMPRESSION: No acute cardiopulmonary findings. Laboratory Results 12/22/16 19:42 Red Blood Count 3.68, Mean Corpuscular Volume 93.2, Mean Corpuscular Hemoglobin 32.9, Mean Corpuscular Hemoglobin Concent 35.3, Mean Platelet Volume 9.3, Neutrophils (%) (Auto) 52.2, Lymphocytes (%) (Auto) 37.6, Monocytes (%) (Auto) 5.9, Eosinophils (%) (Auto) 3.9, Basophils (%) (Auto) 0.2, Neutrophils # (Auto) 4.87, Lymphocytes # (Auto) 3.50, Monocytes # (Auto) 0.55, Eosinophils # (Auto) 0.36, Basophils # (Auto) 0.02 12/22/16 19:42 Test 12/22/16 17:10 12/22/16 19:42 Urine Color YELLOW Urine Appearance CLEAR (CLEAR) Urine pH 7.0 (4.5-7.5) Urine Specific [place] 1.008 (1.000-1.030) Urine Protein NEG (NEG) Urine Glucose (UA) NEG (NEG) Urine Ketones NEG (NEG) Urine Occult Blood NEG (NEG) Urine Nitrite NEG (NEG) Urine Bilirubin NEG (NEG) Urine Urobilinogen NEG (NEG) Urine Leukocyte Esterase NEG (NEG) Urine Test NEG (NEG) Urine Opiates Screen NEG (NEG) Urine Methadone, Qualitative NEG (NEG) Urine Barbiturates NEG (NEG) Urine Phencyclidine (PCP) Level NEG (NEG) Ur Amphetamine/Methamphetamine NEG (NEG) MDMA (Ecstasy) Screen NEG (NEG) Urine Benzodiazepines Screen NEG (NEG) Urine Cocaine Metabolite NEG (NEG) Urine Marijuana (THC) POS (NEG) White Blood Count 9.32 K/uL (4.8-10.8) Red Blood Count 3.68 M/uL (4.2-5.4) Hemoglobin 12.1 g/dL (12.0-16.0) Hematocrit 34.3 % (37-47) Mean Corpuscular Volume 93.2 fL (80-100) Mean Corpuscular Hemoglobin 32.9 pg (25-34) Mean Corpuscular Hemoglobin Concent 35.3 g/dl (32-36) Platelet Count 403 K/uL (130-400) Mean Platelet Volume 9.3 fL (7.4-10.4) Neutrophils (%) (Auto) 52.2 % Lymphocytes (%) (Auto) 37.6 % Monocytes (%) (Auto) 5.9 % Eosinophils (%) (Auto) 3.9 % Basophils (%) (Auto) 0.2 % Neutrophils # (Auto) 4.87 K/uL (1.4-6.5) Lymphocytes # (Auto) 3.50 K/uL (1.2-3.4) Monocytes # (Auto) 0.55 K/uL (0.11-0.59) Eosinophils # (Auto) 0.36 K/uL (0-0.5) Basophils # (Auto) 0.02 K/uL (0-0.2) RDW Standard Deviation 50.1 fL (36.4-46.3) RDW Coefficient of Variation 14.8 % (11.5-14.5) Immature Granulocyte % (Auto) 0.2 % Immature Granulocyte # (Auto) 0.02 K/uL (0.00-0.02) Anion Gap 11.0 mmol/L (3-11) Est Creatinine Clear Calc Drug Dose 61.2 ml/min Estimated GFR () 90.7 Estimated GFR (Non- 78.2 BUN/Creatinine Ratio 20.1 (10-20) Calcium Level 8.4 mg/dl (8.5-10.1) Total Bilirubin 0.1 mg/dl (0.2-1) Direct Bilirubin mg/dl (0-0.2) Aspartate Amino Transf (AST/SGOT) 19 U/L (15-37) Alanine Aminotransferase (ALT/SGPT) 37 U/L (12-78) Alkaline Phosphatase 46 U/L (45-117) Total Protein 6.3 gm/dl (6.4-8.2) Albumin 3.5 gm/dl (3.4-5.0) Globulin 2.8 gm/dl (2.5-4.0) Albumin/Globulin Ratio 1.3 (0.9-2) Thyroid Stimulating Hormone (TSH) 1.570 uIu/ml (0.300-4.500) Chemistry Specimen Hemolysis The above labs were reviewed and were normal. Urine drug screen is positive for marijuana. Medications Administered Medications (Trade) Dose Ordered Sig/Rafia Route Start Time Stop Time Status Last Admin Dose Admin Prochlorperazine Edisylate (Compazine Inj) 10 mg NOW STAT IV 12/22/16 18:29 12/22/16 18:34 DC 12/22/16 21:37 10 MG Lorazepam (Ativan Inj) 1 mg NOW STAT IV 12/22/16 18:29 12/22/16 18:34 DC 12/22/16 21:37 1 MG Ketorolac Tromethamine (Toradol Inj) 30 mg NOW STAT IV 12/22/16 18:29 12/22/16 18:34 DC 12/22/16 21:36 30 MG Dexamethasone Sodium Phosphate 10 mg 10 mg NOW ONCE IV 12/22/16 18:30 12/22/16 18:34 DC 12/22/16 21:37 10 MG Sodium Chloride (Nss 1000ml) 1,000 ml @ 999 mls/hr Q1H1M STAT IV 12/22/16 18:29 12/22/16 19:29 DC 12/22/16 21:37 999 MLS/HR Diphenhydramine HCl (Benadryl Inj) 25 mg NOW STAT IV 12/22/16 20:53 12/22/16 20:54 DC 12/22/16 21:37 25 MG ED Course Patient history and physical exam were performed. Nurse's notes were reviewed. Vital signs were reviewed and were normal. Review prior medical records shows that the patient has been here multiple times in the past. She is currently on a no narcotic treatment plan. Patient is requesting treatment of her migraine. The patient was advised that I would prefer that she wait until she has a mental health evaluation prior to medication administration. She was in agreement. The patient was evaluated by our mental health case aide. Please see her notes for further details of this conversation in which she expressed concern that she may hurt herself at home. The patient does agree to voluntary admission. Additional lab work was ordered and was normal except for a positive urine marijuana test. Orders were placed with medications for her migraine. The patient became argumentative with her nurse, and requested to speak with me again. A shunt on the to know why I was not treating her with any narcotic. I explained to the patient that she is currently on a no narcotic treatment plan. She voiced her disdain for being labeled as a drug seeker. The patient reports that she has discussed this as well via mail communication with Dr. Pak, ED biomedical scientist. When asked if she has spoken with the hospital patient advocate, she reports that she has done so and the decision was not reversed. I explained to the patient that I do not have any authority to overrule her treatment plan. The patient wanted to know what additional medications I could give her. In addition to a broad cocktail medications, I also advised that I could also administered Benadryl 25 mg. I did discuss the purpose for each medication that would be administered to her for her migraine, and the patient finally agreed to this treatment, which was administered. I was unable to reassess the patient prior to her transfer to [address] [place] [address]. Medical Decision Impression Primary Impression: Depression Additional Impression: Headache Departure Information Referrals Yonathan Carlos M.D. (PCP) Patient Instructions My [facility] Problem Qualifiers
[2016-12-22 22:51] LABS: PREG INTERNAL NEGATIVE QC NEG CLEAR BACKGROUND; PREG INTERNAL POSITIVE QC POS CONTROL LINE
[2016-12-22 23:05] VITALS: BP_SYST 106; BP_SYST 110; BP_DIAS 72; BP_DIAS 79; PULSE 99; TEMP 37.3; Ht 157.5 cm; Wt 59.4 kg
[2016-12-22] MEDS ORDERED: PROMETHAZINE HCL 25 MG TAB PO PRN (23:45)
[2016-12-23] MEDS: CLONAZEPAM 1 MG TAB PO SCH ×2 (01:14→08:56)
[2016-12-23] MEDS: GABAPENTIN 300 MG CAP PO SCH ×4 (01:15→21:08)
[2016-12-23] MEDS: PERPHENAZINE 2 MG TAB PO SCH ×3 (01:15→21:08)
[2016-12-23] MEDS: TRAZODONE HCL 50 MG TAB PO PRN (01:15)
[2016-12-23 06:59] VITALS: BP_SYST 105; BP_SYST 94; BP_DIAS 61; BP_DIAS 67; PULSE 86; PULSE 95; TEMP 36.4
[2016-12-23] MEDS ORDERED: MIRTAZAPINE TAB 15 MG TAB PO SCH (09:00)
[2016-12-23] MEDS ORDERED: FLUOXETINE HCL 10 MG CAP PO ONE (10:45)
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
[2016-12-23] MEDS: IBUPROFEN 800 MG TAB PO PRN (15:16)
[2016-12-23] MEDS ORDERED: NURSING VERBAL MED ORDER ONE ×3 (16:45→19:30)
[2016-12-23] MEDS: hydrOXYzine HCL 25 MG TAB PO PRN (17:25)
[2016-12-23 17:26] VITALS: BP 138/102; PULSE 103
[2016-12-23] MEDS ORDERED: CALCIUM CARBONATE 500 MG CHEWABLE PO PRN (19:45)
[2016-12-23] MEDS: DOCUSATE SODIUM 100 MG CAP PO SCH (21:07)
[2016-12-23] MEDS: CLONAZEPAM 1 MG TAB PO PRN (21:11)
[2016-12-23] MEDS ORDERED: CLONAZEPAM 1 MG TAB PO PRN (22:00)
[2016-12-24] MEDS: ONDANSETRON 4MG OD TAB PO PRN (04:41)
[2016-12-24] MEDS: IBUPROFEN 800 MG TAB PO PRN ×3 (04:42→19:12)
[2016-12-24] MEDS: hydrOXYzine HCL 25 MG TAB PO PRN ×2 (04:46→13:32)
[2016-12-24 06:32] VITALS: BP_SYST 104; BP_SYST 115; BP_DIAS 71; BP_DIAS 76; PULSE 79; TEMP 36.9
[2016-12-24] MEDS: DOCUSATE SODIUM 100 MG CAP PO SCH ×2 (08:45→21:08)
[2016-12-24] MEDS: GABAPENTIN 300 MG CAP PO SCH ×3 (08:45→21:08)
[2016-12-24] MEDS: FLUOXETINE HCL 20 MG CAP PO SCH (08:45)
[2016-12-24] MEDS: PERPHENAZINE 2 MG TAB PO SCH ×2 (08:46→21:08)
--- NOTE | 2016-12-24 09:40 | Psychiatric Progress Notes ---
Progress Note Date of Service Dec 24, 2016. Interval History 51 yo woman admitted voluntarily with severe depression and suicidality. Has had chronic stress related to moving from her apartment where she had lived for 20 yrs. Has had 3 back to back admissions to [facility] starting in September. Chief Complaint "I feel better today.". Subjective Patient was seen & assessed interval progress reviewed with Treatment Team. Andressa had a difficult evening yesterday, with complaints of severe MURILLO, feeling that no one was treating it appropriately. She says that she had disagreements with the staff over it, and today wonders why she is so chronically "cranky". She supposes that it relates to her innate distrust of others, not believing that they have her best interests at heart. She then talks about an additional stressor that occurred several months ago. She had a neighbor whom she describes as abusing narcs and BZD's, who had a friend she describes as "mentally retarded" who drove her to appointments. One day the friend came to her apartment and requested help with her neighbor who he feared was . Andressa went with him to the apartment, where her neighbor was indeed . This was difficult enough, but after her , the person who cleared out her apartment, came to Andressa's apartment looking to find the "retarded friend", and eventually asked her to lunch, and later wanted to exchange drugs he got from the neighbor's apartment for "comfort sex". Andressa got him out of her apartment , but was traumatized by the experience. She has not talked extensively about this experience, and was glad to be able to say these things out loud. Today she says that her MURILLO is better, and mood improved. She denies SI/HI, but doesn' t yet feel that her thinking is clear enough or mood stable enough to be at home alone. Review of Systems Constitutional: + fatigue ENT: No dental problems, No hearing loss, No nasal symptoms, No problem reported, No sore throat, No tinnitus, No trouble swallowing, No unusual epistaxis Respiratory: No cough, No dyspnea at rest, No dyspnea on exertion, No hemoptysis, No problem reported, No shortness of breath, No sputum, No wheezing Cardiovascular: No PND, No chest pain, No claudication, No edema, No orthopnea , No palpitations, No problem reported Abdomen: No GI bleeding, No constipation, No diarrhea, No nausea, No pain, No problem reported, No vomiting Musculoskeletal: No calf pain, No joint pain, No muscle pain, No problem reported, No swelling Neurologic: + problem reported (MURILLO) Psychiatric: + anxiety, + depression symptoms Integumentary: No bleeding, No color change, No itch, No new/changing skin lesions, No problem reported, No rash Sleep Information Total Hours of Sleep: 6.00 Meal Information Percent of Breakfast Consumed: 100 Percent of Lunch Consumed: 40 Percent of Dinner Consumed: 50 Mental Status Exam During interview pt is: alert and oriented, cooperative Appearance: appropriately dressed (in leggings and a T-shirt), other (long hair , facial hair, no makeup, and several bruises visible on forearms) Eye contact is: good Motor behavior is: steady gait & station, no abnormal motor movements Speech: normal in rate, rhythm & volume Affect: depressed, tearful, constricted Mood is: depressed Thought process: circumstantial (requires redirection at times to answer the question) Thought content: reality based without delusions Suicidal thought are: present, Plan: present (to shoot self), Intent: denied Homicidal thoughts are: denied Hallucinations: denies auditory, denies visual Cognition: memory grossly intact, attention grossly intact, language grossly intact Intelligence estimated to be: consistent with level of education Insight: impaired Judgement: impaired Impression Difficult day yesterday with MURILLO. Didn't feel people wanted to help her. Today she is feeling better and I wonder if some of her physical complaints are related to a withdrawal syndrome from being rapidly tapered off of Effexor last week. She will increase to 20 mg Prozac today to mediate this. We will need to coordinate with all of her OP providers, and work toward a safety plan that enables her to stay out of the hospital as this is her 4th inpatient stay in 3 mos. Continued Inpatient Care The patient requires inpatient care due to the severity of her condition and the risk for self harm if discharged,. Plan (1) Suicidal ideation -Every 15 minute checks for safety. -Work on healthy coping skills any discharge safety plan. -Family meeting with daughter and develop a plan to remove the gun from her residence prior to discharge. (2) Depression, major, recurrent -The patient does not want to continue taking the mirtazapine, so we'll discontinue it, although she's been on it for less than a week and has not had a full trial. There is a possibility that some of her symptoms could be due to discontinuation syndrome, although she is not able to tell me what dose of venlafaxine XR she was on, she does state she was tapered off of it over a several-day period last week. We discussed a trial of fluoxetine, as she is requesting a different antidepressant, and this would treat discontinuation syndrome as well as target symptoms of depression and anxiety. She is in agreement after reviewing the risks, benefits, and side effects, so we'll start 10 mg daily today, and increase to 20 mg daily tomorrow. -Continue trazodone as needed for sleep. -Work on behavioral techniques for improving mood, including increased socialization and structure at home. Encouraged her to limit time online and on social media. -Coordinate care with outpatient providers. She is currently seeing Dr. Watson at [facility], but states she is switching to [facility] and has an intake there 01/10. She may benefit from outpatient case management. 12/24 - Continue current meds - Q 15 min checks for safety - Encourage participation in group and individual counseling (3) PTSD (post-traumatic stress disorder) -Start fluoxetine as above. Continue home doses of perphenazine, gabapentin, and clonazepam. She is interested in decreasing the doses of some of these medications, but will wait until she has stabilized on the new antidepressant. -Attempted to educate the patient about the importance of therapy to treat chronic PTSD, and the need to engage in therapy for an extended period of time in order to see results. She is willing to consider returning to see Shakila at [facility] (4) Marijuana use Educated the patient about the risks of chronic cannabis use, including worsening of mood and anxiety, interference with medications, and chronic GI symptoms. Reviewed the recommendations for abstinence. (5) Headache Patient may benefit from seeing neurology as an outpatient. She is on a nonnarcotic treatment plan in the emergency room, and do not recommend use of narcotic pain medications given concurrent use of benzodiazepines, polypharmacy , and the risk of abuse. (6) Functional abdominal pain syndrome Follow-up with PCP, Dr. Carlos. (7) Anemia Follow-up with PCP, Dr. Carlos. She has had poor oral intake and low appetite recently, and will encourage healthy diet here. Discharge / Aftercare Planning Primary Care Physician: Name: unsure Psychiatrist: Name: [facility] pending Therapist: Name: one visit to [facility] Avionics Supervisor: Name: nicolas Visit Code E&M Code: 83803 Inventory Assets Strengths: "My will to persevere." Desire to get well Needs: Engagement in therapy, increased structure and socialization Risk Factors Assessment : Yes /single/: Yes Higher / Fall in social status: No Health problems: Yes Mental Health Diagnoses: Yes Substance use disorders: Yes Previous attempt: Yes Previous attempt;highly lethal: Yes Previous attempt; planned: No Previous attempt; didn't tell: No Family history of suicide: Yes Previous psychiatric stay: Yes Hopelessness: Yes Smoker: No Protective Factors Assessment Druze beliefs: Yes : No Responsible for young children: No Employed: No Stable relationships: No Supportive family: Yes Good rapport with provider: No Data Vital Signs Last 24 Hrs: Date Time Temp Pulse Resp B/P Pulse Ox O2 Delivery O2 Flow Rate FiO2 12/24/16 06:32 36.9 79 17 104/71 115/76 12/23/16 17:26 103 138/102 Meds Administered Last 24 Hrs: Meds Administered (Past 24Hrs) Medications (Trade) Dose Ordered Sig/Rafia Route Start Time Stop Time Status Last Admin Dose Admin Prochlorperazine Edisylate (Compazine Inj) 10 mg NOW STAT IV 12/22/16 18:29 12/22/16 18:34 DC 12/22/16 21:37 10 MG Lorazepam (Ativan Inj) 1 mg NOW STAT IV 12/22/16 18:29 12/22/16 18:34 DC 12/22/16 21:37 1 MG Ketorolac Tromethamine (Toradol Inj) 30 mg NOW STAT IV 12/22/16 18:29 12/22/16 18:34 DC 12/22/16 21:36 30 MG Dexamethasone Sodium Phosphate 10 mg 10 mg NOW ONCE IV 12/22/16 18:30 12/22/16 18:34 DC 12/22/16 21:37 10 MG Sodium Chloride (Nss 1000ml) 1,000 ml @ 999 mls/hr Q1H1M STAT IV 12/22/16 18:29 12/22/16 19:29 DC 12/22/16 21:37 999 MLS/HR Diphenhydramine HCl (Benadryl Inj) 25 mg NOW STAT IV 12/22/16 20:53 12/22/16 20:54 DC 12/22/16 21:37 25 MG Hydroxyzine HCl (Vistaril Tab) 25 mg Q4H PRN PO 12/22/16 22:30 01/21/17 22:29 12/24/16 04:46 25 MG Gabapentin (Neurontin Cap) 300 mg TID PO 12/23/16 09:00 01/22/17 08:59 12/24/16 08:45 300 MG Clonazepam (Klonopin Tab) 1 mg BID PO 12/22/16 23:30 12/23/16 10:05 DC 12/23/16 08:56 1 MG Ondansetron HCl (Zofran Odt) 4-8MG PRN Q6H PRN PO 12/22/16 23:45 01/21/17 23:44 12/24/16 04:41 4 MG Perphenazine (Trilafon Tab) 4 mg QAM PO 12/23/16 09:00 01/22/17 08:59 12/24/16 08:46 4 MG Perphenazine (Trilafon Tab) 6 mg HS PO 12/23/16 22:00 01/22/17 21:59 12/23/16 21:08 6 MG Trazodone HCl (Desyrel Tab) 50 mg HS PRN PO 12/22/16 23:45 01/21/17 23:44 12/23/16 01:15 50 MG Fluoxetine HCl (Prozac Cap) 10 mg NOW ONCE PO 12/23/16 10:45 12/23/16 10:56 DC 12/23/16 12:19 10 MG Fluoxetine HCl (Prozac Cap) 20 mg QAM PO 12/24/16 09:00 01/23/17 08:59 12/24/16 08:45 20 MG Ibuprofen (Motrin Tab) 800 mg TID PRN PO 12/23/16 14:30 01/22/17 14:29 12/24/16 04:42 800 MG Docusate Sodium (coLACE CAP) 100 mg BID PO 12/23/16 22:00 01/22/17 21:59 12/24/16 08:45 100 MG Clonazepam (Klonopin Tab) 1 mg BID PRN PO 12/23/16 17:00 01/22/17 16:59 12/23/16 21:11 1 MG Calcium Carbonate (Tums Chew Tab) Q2H PRN PO 12/23/16 19:45 01/22/17 19:44 12/23/16 20:28 2,000 MG Lab Results Last 24 Hrs: 12/22/16 19:42 Red Blood Count 3.68, Mean Corpuscular Volume 93.2, Mean Corpuscular Hemoglobin 32.9, Mean Corpuscular Hemoglobin Concent 35.3, Mean Platelet Volume 9.3, Neutrophils (%) (Auto) 52.2, Lymphocytes (%) (Auto) 37.6, Monocytes (%) (Auto) 5.9, Eosinophils (%) (Auto) 3.9, Basophils (%) (Auto) 0.2, Neutrophils # (Auto) 4.87, Lymphocytes # (Auto) 3.50, Monocytes # (Auto) 0.55, Eosinophils # (Auto) 0.36, Basophils # (Auto) 0.02 12/22/16 19:42 Test 12/22/16 17:10 12/22/16 19:42 Urine Color YELLOW Urine Appearance CLEAR (CLEAR) Urine pH 7.0 (4.5-7.5) Urine Specific [place] 1.008 (1.000-1.030) Urine Protein NEG (NEG) Urine Glucose (UA) NEG (NEG) Urine Ketones NEG (NEG) Urine Occult Blood NEG (NEG) Urine Nitrite NEG (NEG) Urine Bilirubin NEG (NEG) Urine Urobilinogen NEG (NEG) Urine Leukocyte Esterase NEG (NEG) Urine Test NEG (NEG) Urine Opiates Screen NEG (NEG) Urine Methadone, Qualitative NEG (NEG) Urine Barbiturates NEG (NEG) Urine Phencyclidine (PCP) Level NEG (NEG) Ur Amphetamine/Methamphetamine NEG (NEG) MDMA (Ecstasy) Screen NEG (NEG) Urine Benzodiazepines Screen NEG (NEG) Urine Cocaine Metabolite NEG (NEG) Urine Marijuana (THC) POS (NEG) White Blood Count 9.32 K/uL (4.8-10.8) Red Blood Count 3.68 M/uL (4.2-5.4) Hemoglobin 12.1 g/dL (12.0-16.0) Hematocrit 34.3 % (37-47) Mean Corpuscular Volume 93.2 fL (80-100) Mean Corpuscular Hemoglobin 32.9 pg (25-34) Mean Corpuscular Hemoglobin Concent 35.3 g/dl (32-36) Platelet Count 403 K/uL (130-400) Mean Platelet Volume 9.3 fL (7.4-10.4) Neutrophils (%) (Auto) 52.2 % Lymphocytes (%) (Auto) 37.6 % Monocytes (%) (Auto) 5.9 % Eosinophils (%) (Auto) 3.9 % Basophils (%) (Auto) 0.2 % Neutrophils # (Auto) 4.87 K/uL (1.4-6.5) Lymphocytes # (Auto) 3.50 K/uL (1.2-3.4) Monocytes # (Auto) 0.55 K/uL (0.11-0.59) Eosinophils # (Auto) 0.36 K/uL (0-0.5) Basophils # (Auto) 0.02 K/uL (0-0.2) RDW Standard Deviation 50.1 fL (36.4-46.3) RDW Coefficient of Variation 14.8 % (11.5-14.5) Immature Granulocyte % (Auto) 0.2 % Immature Granulocyte # (Auto) 0.02 K/uL (0.00-0.02) Anion Gap 11.0 mmol/L (3-11) Est Creatinine Clear Calc Drug Dose 61.2 ml/min Estimated GFR () 90.7 Estimated GFR (Non- 78.2 BUN/Creatinine Ratio 20.1 (10-20) Calcium Level 8.4 mg/dl (8.5-10.1) Total Bilirubin 0.1 mg/dl (0.2-1) Direct Bilirubin mg/dl (0-0.2) Aspartate Amino Transf (AST/SGOT) 19 U/L (15-37) Alanine Aminotransferase (ALT/SGPT) 37 U/L (12-78) Alkaline Phosphatase 46 U/L (45-117) Total Protein 6.3 gm/dl (6.4-8.2) Albumin 3.5 gm/dl (3.4-5.0) Globulin 2.8 gm/dl (2.5-4.0) Albumin/Globulin Ratio 1.3 (0.9-2) Thyroid Stimulating Hormone (TSH) 1.570 uIu/ml (0.300-4.500) Human Chorionic Gonadotropin, Qual NEG (NEG) Chemistry Specimen Hemolysis Problem Qualifiers (1) Depression, major, recurrent: Active/Remission status: currently active Major depression episode severity: severe Psychotic features: without psychotic features Qualified Codes: F33.2 - Major depressive disorder, recurrent severe without psychotic features (2) Headache: Headache type: unspecified
[2016-12-24] MEDS: CLONAZEPAM 1 MG TAB PO PRN (21:10)
[2016-12-25] MEDS: IBUPROFEN 800 MG TAB PO PRN (04:32)
[2016-12-25 06:52] VITALS: BP_SYST 103; BP_SYST 117; BP_DIAS 70; BP_DIAS 71; PULSE 66; PULSE 69; TEMP 36.7
--- NOTE | 2016-12-25 08:01 | Psychiatric Progress Notes ---
Progress Note Date of Service Dec 25, 2016. Interval History 51 yo woman admitted voluntarily with severe depression and suicidality. Has had chronic stress related to moving from her apartment where she had lived for 20 yrs. Has had 3 back to back admissions to [facility] starting in September. Chief Complaint "Things are getting better". Subjective Patient was seen & assessed interval progress reviewed with nursing. Staff report she had a headache two days ago, but it has resolved, and her flu like symptoms have resolved. She denies side effects from the fluoxetine. Mood is improving, likes the groups, and is working on talking about her problems. Report SI when thinking "I haven't really been successful in this life, I might be capable of doing something, because I don't know where my head it," and feels safe here. Talks about her concerns that she's not as sick as others, doesn't have a reason to feel so bad, and is trying not to put herself down so much. Discussed CBT techniques and encouraged her to use patient handbook. She' d like her clonazepam to be changed from qhs to 4pm, and would like Tums for reflux. She is now thinking she doesn't want a meeting with her daughter, saying she talked to her on her own, and and wants to repair her relationship with her kids, as she's been "inappropriately upset, a psychotically angry mother," but says her daughter understands and "knows I'm getting help, that's all they need to know." She does not want a meeting with anyone. Sleep Information Total Hours of Sleep: 6.50 Meal Information Percent of Breakfast Consumed: 100 Percent of Lunch Consumed: 100 Percent of Dinner Consumed: 75 Mental Status Exam During interview pt is: alert and oriented, cooperative Appearance: appropriately dressed (in leggings and a T-shirt), appropriately groomed (mildly unkempt) Eye contact is: good Motor behavior is: steady gait & station, no abnormal motor movements Speech: normal in rate, rhythm & volume Affect: depressed, tearful, constricted Mood is: depressed Thought process: goal directed Thought content: reality based without delusions Suicidal thought are: present, Plan: denied Homicidal thoughts are: denied Hallucinations: denies auditory, denies visual Cognition: memory grossly intact, attention grossly intact, language grossly intact Intelligence estimated to be: consistent with level of education Insight: impaired Judgement: impaired Impression Difficult day yesterday with MURILLO. Didn't feel people wanted to help her. Today she is feeling better and I wonder if some of her physical complaints are related to a withdrawal syndrome from being rapidly tapered off of Effexor last week. She will increase to 20 mg Prozac today to mediate this. We will need to coordinate with all of her OP providers, and work toward a safety plan that enables her to stay out of the hospital as this is her 4th inpatient stay in 3 mos. Continued Inpatient Care The patient requires inpatient care due to the severity of her condition and the risk for self harm if discharged,. Plan (1) Suicidal ideation -Every 15 minute checks for safety. -Work on healthy coping skills any discharge safety plan. -Family meeting with daughter and develop a plan to remove the gun from her residence prior to discharge. 12/25 - Now refusing family meeting (2) Depression, major, recurrent -The patient does not want to continue taking the mirtazapine, so we'll discontinue it, although she's been on it for less than a week and has not had a full trial. There is a possibility that some of her symptoms could be due to discontinuation syndrome, although she is not able to tell me what dose of venlafaxine XR she was on, she does state she was tapered off of it over a several-day period last week. We discussed a trial of fluoxetine, as she is requesting a different antidepressant, and this would treat discontinuation syndrome as well as target symptoms of depression and anxiety. She is in agreement after reviewing the risks, benefits, and side effects, so we'll start 10 mg daily today, and increase to 20 mg daily tomorrow. -Continue trazodone as needed for sleep. -Work on behavioral techniques for improving mood, including increased socialization and structure at home. Encouraged her to limit time online and on social media. -Coordinate care with outpatient providers. She is currently seeing Dr. Watson at [facility], but states she is switching to [facility] and has an intake there 01/10. She may benefit from outpatient case management. 12/24 - Increase fluoxetine to 20mg daily - Q 15 min checks for safety - Encourage participation in group and individual counseling 12/25 - Continue current meds - Case management referral to [facility] initiated. Needs therapy referral. (3) PTSD (post-traumatic stress disorder) -Start fluoxetine as above. Continue home doses of perphenazine, gabapentin, and clonazepam. She is interested in decreasing the doses of some of these medications, but will wait until she has stabilized on the new antidepressant. -Attempted to educate the patient about the importance of therapy to treat chronic PTSD, and the need to engage in therapy for an extended period of time in order to see results. She is willing to consider returning to see Shakila at [facility] 12/25 - Again discussed importance of therapy, and is willing to be referred to someone, but wants someone who specialized in trauma therapy. (4) Marijuana use Educated the patient about the risks of chronic cannabis use, including worsening of mood and anxiety, interference with medications, and chronic GI symptoms. Reviewed the recommendations for abstinence. (5) Headache Patient may benefit from seeing neurology as an outpatient. She is on a nonnarcotic treatment plan in the emergency room, and do not recommend use of narcotic pain medications given concurrent use of benzodiazepines, polypharmacy , and the risk of abuse. (6) Functional abdominal pain syndrome Follow-up with PCP, Dr. Carlos. (7) Anemia Follow-up with PCP, Dr. Carlos. She has had poor oral intake and low appetite recently, and will encourage healthy diet here. Discharge / Aftercare Planning Primary Care Physician: Name: unsure Psychiatrist: Name: Dr Wang at [facility] Phone Number: [phone] Date of Appointment: Jan 14, 2017 Time of Appointment: 11:15 Therapist: Name: Maritza at [facility] in [place] Phone Number: [phone] Date of Appointment: Jan 07, 2017 Time of Appointment: 8:00 pm Appointment Notes: [facility] in [place] Janitorial Maintenance Worker: Name: nicolas Visit Code E&M Code: 36202 Inventory Assets Strengths: "My will to persevere." Desire to get well Needs: Engagement in therapy, increased structure and socialization Risk Factors Assessment : Yes /single/: Yes Higher / Fall in social status: No Health problems: Yes Mental Health Diagnoses: Yes Substance use disorders: Yes Previous attempt: Yes Previous attempt;highly lethal: Yes Previous attempt; planned: No Previous attempt; didn't tell: No Family history of suicide: Yes Previous psychiatric stay: Yes Hopelessness: Yes Smoker: No Protective Factors Assessment Pentecostal beliefs: Yes : No Responsible for young children: No Employed: No Stable relationships: No Supportive family: Yes Good rapport with provider: No Data Vital Signs Last 24 Hrs: Date Time Temp Pulse Resp B/P Pulse Ox O2 Delivery O2 Flow Rate FiO2 12/25/16 06:52 36.7 66 17 117/71 69 103/70 Meds Administered Last 24 Hrs: Meds Administered (Past 24Hrs) Medications (Trade) Dose Ordered Sig/Rafia Route Start Time Stop Time Status Last Admin Dose Admin Gabapentin (Neurontin Cap) 300 mg TID PO 12/23/16 09:00 01/22/17 08:59 12/24/16 21:08 300 MG Perphenazine (Trilafon Tab) 4 mg QAM PO 12/23/16 09:00 01/22/17 08:59 12/24/16 08:46 4 MG Perphenazine (Trilafon Tab) 6 mg HS PO 12/23/16 22:00 01/22/17 21:59 12/24/16 21:08 6 MG Fluoxetine HCl (Prozac Cap) 10 mg NOW ONCE PO 12/23/16 10:45 12/23/16 10:56 DC 12/23/16 12:19 10 MG Fluoxetine HCl (Prozac Cap) 20 mg QAM PO 12/24/16 09:00 01/23/17 08:59 12/24/16 08:45 20 MG Ibuprofen (Motrin Tab) 800 mg TID PRN PO 12/23/16 14:30 01/22/17 14:29 12/25/16 04:32 800 MG Docusate Sodium (coLACE CAP) 100 mg BID PO 12/23/16 22:00 01/22/17 21:59 12/24/16 21:08 100 MG Clonazepam (Klonopin Tab) 1 mg BID PRN PO 12/23/16 17:00 01/22/17 16:59 12/24/16 21:10 1 MG Calcium Carbonate (Tums Chew Tab) Q2H PRN PO 12/23/16 19:45 01/22/17 19:44 12/23/16 20:28 2,000 MG Problem Qualifiers (1) Depression, major, recurrent: Active/Remission status: currently active Major depression episode severity: severe Psychotic features: without psychotic features Qualified Codes: F33.2 - Major depressive disorder, recurrent severe without psychotic features (2) Headache: Headache type: unspecified
[2016-12-25] MEDS: PERPHENAZINE 2 MG TAB PO SCH ×2 (08:35→21:33)
[2016-12-25] MEDS: GABAPENTIN 300 MG CAP PO SCH ×3 (08:35→21:33)
[2016-12-25] MEDS: FLUOXETINE HCL 20 MG CAP PO SCH (08:35)
[2016-12-25] MEDS: DOCUSATE SODIUM 100 MG CAP PO SCH ×2 (08:35→21:33)
[2016-12-25] MEDS: ACETAMINOPHEN 325 MG TAB PO PRN (10:30)
[2016-12-25] MEDS ORDERED: CLONAZEPAM 0.5 MG TAB ONE (12:50)
[2016-12-25] MEDS ORDERED: CLONAZEPAM 0.5 MG TAB PO PRN (16:00)
[2016-12-25] MEDS ORDERED: CLONAZEPAM 0.5 MG TAB PO ONE (16:00)
[2016-12-25] MEDS: CALCIUM CARBONATE 500 MG CHEWABLE PO PRN (18:35)
[2016-12-25] MEDS: CLONAZEPAM 1 MG TAB PO PRN (21:36)
[2016-12-25] MEDS: TRAZODONE HCL 50 MG TAB PO PRN (22:57)
[2016-12-26] MEDS: CALCIUM CARBONATE 500 MG CHEWABLE PO PRN ×3 (03:15→21:38)
[2016-12-26] MEDS: hydrOXYzine HCL 25 MG TAB PO PRN ×2 (03:15→21:37)
[2016-12-26 06:42] VITALS: BP_SYST 111; BP_SYST 119; BP_DIAS 74; BP_DIAS 76; PULSE 93; PULSE 95; TEMP 36.9
[2016-12-26] MEDS: PERPHENAZINE 2 MG TAB PO SCH ×2 (07:43→21:38)
[2016-12-26] MEDS: DOCUSATE SODIUM 100 MG CAP PO SCH ×2 (07:43→21:38)
[2016-12-26] MEDS: GABAPENTIN 300 MG CAP PO SCH ×3 (07:43→21:38)
[2016-12-26] MEDS: FLUOXETINE HCL 20 MG CAP PO SCH (07:43)
--- NOTE | 2016-12-26 07:54 | Psychiatric Progress Notes ---
Progress Note Date of Service Dec 26, 2016. Interval History 51 yo woman admitted voluntarily with severe depression and suicidality. Has had chronic stress related to moving from her apartment where she had lived for 20 yrs. Has had 3 back to back admissions to [facility] starting in September. Chief Complaint "Okay". Subjective Patient was seen & assessed interval progress reviewed with nursing. Staff report she got Ativan for anxiety yesterday, which helped. She continues to report anxiety and a dull headache which is chronic. She reports that a "brain crushing migraine" started 12/15/16 in the [facility] "when they gave me news I couldn't accept, terrible news." She doesn't think it has resolved completely since then, and has been coming and going, but decreased in intensity. She says she has come to the ER multiple times since then requesting pain medication for headache, but never followed up with her PCP, and has never seen a neurologist. Records reveal one ER visit 12/18/16 for a headache, where she was given IV Toradol, Decadron, and Compazine, and was discharged. Records also indicate numerous ER visits for abdominal pain, nausea and vomiting (7 in 2015, 3 in 2014 , 3 in 2013, 26 in 2012 - going twice in the same day on multiple occasions). She denies discontinuation symptoms. She reports improved mood, has found the CBT techniques helpful, and is working on her workbook. She reports anxiety due to "the fear of the unknown, anxious and scared," without identifiable triggers. 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 She is also worried about having outpatient providers who will listen and allow her to talk, saying her last psychiatrist "just wanted to talk about my medications." Sleep Information Total Hours of Sleep: 5.50 Meal Information Percent of Breakfast Consumed: 50 Percent of Lunch Consumed: 75 Percent of Dinner Consumed: 100 Mental Status Exam During interview pt is: alert and oriented, cooperative Appearance: appropriately dressed (in leggings and a T-shirt), appropriately groomed (mildly unkempt), other (bruising on b/l forearms) Eye contact is: good Motor behavior is: steady gait & station, no abnormal motor movements Speech: normal in rate, rhythm & volume Affect: depressed, other (more reactive) Mood is: depressed Thought process: goal directed Thought content: reality based without delusions Suicidal thought are: present, Plan: denied Homicidal thoughts are: denied Hallucinations: denies auditory, denies visual Cognition: memory grossly intact, attention grossly intact, language grossly intact Intelligence estimated to be: consistent with level of education Insight: impaired Judgement: impaired Impression Difficult day yesterday with MUR[facility]O. Didn't feel people wanted to help her. Today she is feeling better and I wonder if some of her physical complaints are related to a withdrawal syndrome from being rapidly tapered off of Effexor last week. She will increase to 20 mg Prozac today to mediate this. We will need to coordinate with all of her OP providers, and work toward a safety plan that enables her to stay out of the hospital as this is her 4th inpatient stay in 3 mos. Continued Inpatient Care The patient requires inpatient care due to the severity of her condition and the risk for self harm if discharged,. Plan (1) Suicidal ideation -Every 15 minute checks for safety. -Work on healthy coping skills any discharge safety plan. -Family meeting with daughter and develop a plan to remove the gun from her residence prior to discharge. 3/ - Now refusing family meeting, doesn't think she needs it, and says daughter is busy 3/5 - Still refusing family meeting, but advised would need to involve someone to confirm that the gun has been removed prior to discharge. (2) Depression, major, recurrent -The patient does not want to continue taking the mirtazapine, so we'll discontinue it, although she's been on it for less than a week and has not had a full trial. There is a possibility that some of her symptoms could be due to discontinuation syndrome, although she is not able to tell me what dose of venlafaxine XR she was on, she does state she was tapered off of it over a several-day period last week. We discussed a trial of fluoxetine, as she is requesting a different antidepressant, and this would treat discontinuation syndrome as well as target symptoms of depression and anxiety. She is in agreement after reviewing the risks, benefits, and side effects, so we'll start 10 mg daily today, and increase to 20 mg daily tomorrow. -Continue trazodone as needed for sleep. -Work on behavioral techniques for improving mood, including increased socialization and structure at home. Encouraged her to limit time online and on social media. -Coordinate care with outpatient providers. She is currently seeing Dr. Watson at [facility], but states she is switching to [place] and has an intake there 01/10. She may benefit from outpatient case management. 12/24 - Increase fluoxetine to 20mg daily - Q 15 min checks for safety - Encourage participation in group and individual counseling 12/25 - Continue current meds - Case management referral to [facility] initiated. Needs therapy referral. (3) PTSD (post-traumatic stress disorder) -Start fluoxetine as above. Continue home doses of perphenazine, gabapentin, and clonazepam. She is interested in decreasing the doses of some of these medications, but will wait until she has stabilized on the new antidepressant. -Attempted to educate the patient about the importance of therapy to treat chronic PTSD, and the need to engage in therapy for an extended period of time in order to see results. She is willing to consider returning to see Shakila at [facility] 12/25 - Again discussed importance of therapy, and is willing to be referred to someone, but wants someone who specialized in trauma therapy. (4) Marijuana use Educated the patient about the risks of chronic cannabis use, including worsening of mood and anxiety, interference with medications, and chronic GI symptoms. Reviewed the recommendations for abstinence. (5) Headache Patient may benefit from seeing neurology as an outpatient. She is on a nonnarcotic treatment plan in the emergency room, and do not recommend use of narcotic pain medications given concurrent use of benzodiazepines, polypharmacy , and the risk of abuse. (6) Functional abdominal pain syndrome Follow-up with PCP, Dr. Carlos. (7) Anemia Follow-up with PCP, Dr. Carlos. She has had poor oral intake and low appetite recently, and will encourage healthy diet here. Discharge / Aftercare Planning Primary Care Physician: Name: unsure Psychiatrist: Name: Dr Wang at [facility] Phone Number: [phone] Date of Appointment: Jan 14, 2017 Time of Appointment: 11:15 Therapist: Name: Maritza at [facility] in [place] Phone Number: [phone] Date of Appointment: Jan 07, 2017 Time of Appointment: 8:00 pm Appointment Notes: [address] in [place] [employer] Certified Internetwork Expert: Name: nicolas Visit Code E&M Code: 13317 Inventory Assets Strengths: "My will to persevere." Desire to get well Needs: Engagement in therapy, increased structure and socialization Risk Factors Assessment : Yes /single/: Yes Higher / Fall in social status: No Health problems: Yes Mental Health Diagnoses: Yes Substance use disorders: Yes Previous attempt: Yes Previous attempt;highly lethal: Yes Previous attempt; planned: No Previous attempt; didn't tell: No Family history of suicide: Yes Previous psychiatric stay: Yes Hopelessness: Yes Smoker: No Protective Factors Assessment Yazdanism beliefs: Yes : No Responsible for young children: No Employed: No Stable relationships: No Supportive family: Yes Good rapport with provider: No Data Vital Signs Last 24 Hrs: Date Time Temp Pulse Resp B/P Pulse Ox O2 Delivery O2 Flow Rate FiO2 12/26/16 06:42 36.9 93 16 119/74 95 111/76 Meds Administered Last 24 Hrs: Meds Administered (Past 24Hrs) Medications (Trade) Dose Ordered Sig/Rafia Route Start Time Stop Time Status Last Admin Dose Admin Fluoxetine HCl (Prozac Cap) 20 mg QAM PO 12/24/16 09:00 01/23/17 08:59 12/26/16 07:43 20 MG Clonazepam (Klonopin Tab) 0.5 mg 0900,1600 PRN PO 12/25/16 16:00 12/25/16 16:00 DC 12/25/16 12:55 0.5 MG Calcium Carbonate (Tums Chew Tab) 500 mg Q2H PRN PO 12/25/16 10:00 01/24/17 09:59 12/26/16 03:15 500 MG Clonazepam (Klonopin Tab) 0.5 mg TODAY@1600 ONCE PO 12/25/16 16:00 12/25/16 16:01 DC 12/25/16 16:07 0.5 MG Clonazepam (Klonopin Tab) 1 mg Q4 PRN PO 12/25/16 14:45 01/24/17 14:44 12/25/16 21:36 1 MG Problem Qualifiers (1) Depression, major, recurrent: Active/Remission status: currently active Major depression episode severity: severe Psychotic features: without psychotic features Qualified Codes: F33.2 - Major depressive disorder, recurrent severe without psychotic features (2) Headache: Headache type: unspecified
[2016-12-26] MEDS: CLONAZEPAM 1 MG TAB PO PRN ×2 (09:03→15:10)
[2016-12-26] MEDS: ONDANSETRON 4MG OD TAB PO PRN ×2 (12:26→19:08)
[2016-12-26] MEDS: ACETAMINOPHEN 325 MG TAB PO PRN (12:27)
[2016-12-26] MEDS: IBUPROFEN 800 MG TAB PO PRN (16:02)
[2016-12-26] MEDS ORDERED: NURSING VERBAL MED ORDER ONE (16:15)
[2016-12-26] MEDS ORDERED: ALUM HYDROX/MAG TRISILICATE CHEW PO PRN (16:30)
[2016-12-26] MEDS: TRAZODONE HCL 50 MG TAB PO PRN (22:25)
[2016-12-27] MEDS: CLONAZEPAM 1 MG TAB PO PRN ×2 (05:22→17:58)
[2016-12-27 06:45] VITALS: BP_SYST 108; BP_SYST 114; BP_DIAS 76; BP_DIAS 78; PULSE 103; PULSE 97; TEMP 36.7
[2016-12-27] MEDS: GABAPENTIN 300 MG CAP PO SCH ×3 (08:24→21:13)
[2016-12-27] MEDS: DOCUSATE SODIUM 100 MG CAP PO SCH ×2 (08:24→21:13)
[2016-12-27] MEDS: FLUOXETINE HCL 20 MG CAP PO SCH (08:25)
[2016-12-27] MEDS: PERPHENAZINE 2 MG TAB PO SCH ×2 (08:25→21:14)
[2016-12-27] MEDS: IBUPROFEN 800 MG TAB PO PRN (12:17)
[2016-12-27] MEDS: hydrOXYzine HCL 25 MG TAB PO PRN ×2 (13:42→23:21)
--- NOTE | 2016-12-27 13:43 | Psychiatric Progress Notes ---
Progress Note Date of Service Dec 27, 2016. Interval History 51 yo woman admitted voluntarily with severe depression and suicidality. Has had chronic stress related to moving from her apartment where she had lived for 20 yrs. Has had 3 back to back admissions to [facility] starting in September. Chief Complaint "Much better. ". Subjective Patient was seen & assessed interval progress reviewed with Treatment Team. The patient says that she had a good weekend and is feeling much better. She feels "like this won't be a revolving door anymore", that she feels better prepared to go home and manage her stress. She is looking forward to being seen at [facility] for both mental health and primary care, and is still looking to find a custodial trauma therapist. She has called her son to ask him to call her boyfriend's mother to come and secure the gun she had been keeping for him, and she will touch base with her son later this evening to confirm its disposal. She denies SI/HI, denies aud/vis hallucinations. She is hopeful for discharge tomorrow. Review of Systems Constitutional: No chills, No fatigue, No fever, No problem reported, No sweats , No weakness, No weight loss ENT: No dental problems, No hearing loss, No nasal symptoms, No problem reported, No sore throat, No tinnitus, No trouble swallowing, No unusual epistaxis Respiratory: No cough, No dyspnea at rest, No dyspnea on exertion, No hemoptysis, No problem reported, No shortness of breath, No sputum, No wheezing Cardiovascular: No PND, No chest pain, No claudication, No edema, No orthopnea , No palpitations, No problem reported Abdomen: No GI bleeding, No constipation, No diarrhea, No nausea, No pain, No problem reported, No vomiting Musculoskeletal: No calf pain, No joint pain, No muscle pain, No problem reported, No swelling Neurologic: No balance problems, No memory loss, No numbness/tingling, No paralysis, No vertigo, No weakness Psychiatric: + problem reported (Improving mood) Integumentary: No bleeding, No color change, No itch, No new/changing skin lesions, No problem reported, No rash Sleep Information Total Hours of Sleep: 5.50 Meal Information Percent of Breakfast Consumed: 100 Percent of Lunch Consumed: 100 Percent of Dinner Consumed: 100 Mental Status Exam During interview pt is: alert and oriented, cooperative Appearance: appropriately dressed (in leggings and a T-shirt), appropriately groomed (mildly unkempt), other (bruising on b/l forearms) Eye contact is: good Motor behavior is: steady gait & station, no abnormal motor movements Speech: normal in rate, rhythm & volume Affect: blunted, other (more reactive) Mood is: depressed (but improving) Thought process: goal directed Thought content: reality based without delusions Suicidal thought are: present, Plan: denied Homicidal thoughts are: denied Hallucinations: denies auditory, denies visual Cognition: memory grossly intact, attention grossly intact, language grossly intact Intelligence estimated to be: consistent with level of education Insight: impaired Judgement: impaired Impression Mood slowly improving and now feeling closer to discharge. Will need to confirm that guns have been secured which we hope will occur today, and will need to secure aftercare appointments, but may be able to discharge as soon as tomorrow. Continued Inpatient Care The patient requires inpatient care due to the severity of her condition and the risk for self harm if discharged,. Plan (1) Suicidal ideation -Every 15 minute checks for safety. -Work on healthy coping skills any discharge safety plan. -Family meeting with daughter and develop a plan to remove the gun from her residence prior to discharge. 3/ - Now refusing family meeting, doesn't think she needs it, and says daughter is busy 3/5 - Still refusing family meeting, but advised would need to involve someone to confirm that the gun has been removed prior to discharge. (2) Depression, major, recurrent -The patient does not want to continue taking the mirtazapine, so we'll discontinue it, although she's been on it for less than a week and has not had a full trial. There is a possibility that some of her symptoms could be due to discontinuation syndrome, although she is not able to tell me what dose of venlafaxine XR she was on, she does state she was tapered off of it over a several-day period last week. We discussed a trial of fluoxetine, as she is requesting a different antidepressant, and this would treat discontinuation syndrome as well as target symptoms of depression and anxiety. She is in agreement after reviewing the risks, benefits, and side effects, so we'll start 10 mg daily today, and increase to 20 mg daily tomorrow. -Continue trazodone as needed for sleep. -Work on behavioral techniques for improving mood, including increased socialization and structure at home. Encouraged her to limit time online and on social media. -Coordinate care with outpatient providers. She is currently seeing Dr. Watson at [facility], but states she is switching to [facility] and has an intake there 01/10. She may benefit from outpatient case management. 12/24 - Increase fluoxetine to 20mg daily - Q 15 min checks for safety - Encourage participation in group and individual counseling 12/25 - Continue current meds - Case management referral to [facility] initiated. Needs therapy referral. 12/27 - Patient making arrangements to have gun removed from her home (3) PTSD (post-traumatic stress disorder) -Start fluoxetine as above. Continue home doses of perphenazine, gabapentin, and clonazepam. She is interested in decreasing the doses of some of these medications, but will wait until she has stabilized on the new antidepressant. -Attempted to educate the patient about the importance of therapy to treat chronic PTSD, and the need to engage in therapy for an extended period of time in order to see results. She is willing to consider returning to see Shakila at [facility] 12/25 - Again discussed importance of therapy, and is willing to be referred to someone, but wants someone who specialized in trauma therapy. (4) Marijuana use Educated the patient about the risks of chronic cannabis use, including worsening of mood and anxiety, interference with medications, and chronic GI symptoms. Reviewed the recommendations for abstinence. (5) Headache Patient may benefit from seeing neurology as an outpatient. She is on a nonnarcotic treatment plan in the emergency room, and do not recommend use of narcotic pain medications given concurrent use of benzodiazepines, polypharmacy , and the risk of abuse. (6) Functional abdominal pain syndrome Follow-up with PCP, Dr. Carlos. (7) Anemia Follow-up with PCP, Dr. Carlos. She has had poor oral intake and low appetite recently, and will encourage healthy diet here. Discharge / Aftercare Planning Primary Care Physician: Name: unsure Psychiatrist: Name: Dr Wang at [facility] Phone Number: [phone] Date of Appointment: Jan 14, 2017 Time of Appointment: 11:15 Therapist: Name: Maritza at [facility] in [place] Phone Number: [phone] Date of Appointment: Jan 07, 2017 Time of Appointment: 8:00 pm Appointment Notes: [address] in [place] [employer] Operator: Name: na Visit Code E&M Code: 50057 Inventory Assets Strengths: "My will to persevere." Desire to get well Needs: Engagement in therapy, increased structure and socialization Risk Factors Assessment : Yes /single/: Yes Higher / Fall in social status: No Health problems: Yes Mental Health Diagnoses: Yes Substance use disorders: Yes Previous attempt: Yes Previous attempt;highly lethal: Yes Previous attempt; planned: No Previous attempt; didn't tell: No Family history of suicide: Yes Previous psychiatric stay: Yes Hopelessness: Yes Smoker: No Protective Factors Assessment Mandaen beliefs: Yes : No Responsible for young children: No Employed: No Stable relationships: No Supportive family: Yes Good rapport with provider: No Data Vital Signs Last 24 Hrs: Date Time Temp Pulse Resp B/P Pulse Ox O2 Delivery O2 Flow Rate FiO2 12/27/16 06:45 36.7 97 16 108/76 103 114/78 Meds Administered Last 24 Hrs: Meds Administered (Past 24Hrs) Medications (Trade) Dose Ordered Sig/Rafia Route Start Time Stop Time Status Last Admin Dose Admin Clonazepam (Klonopin Tab) 0.5 mg 0900,1600 PRN PO 12/25/16 16:00 12/25/16 16:00 DC 12/25/16 12:55 0.5 MG Clonazepam (Klonopin Tab) 0.5 mg TODAY@1600 ONCE PO 12/25/16 16:00 12/25/16 16:01 DC 12/25/16 16:07 0.5 MG Clonazepam (Klonopin Tab) 1 mg Q4 PRN PO 12/25/16 14:45 01/24/17 14:44 12/27/16 05:22 1 MG Al Hydroxide/Mg Trisilicate (Gaviscon Chew Tab) 2 tab Q6H PRN PO 12/26/16 16:30 01/25/17 16:29 12/26/16 19:08 2 TAB Lab Results Last 24 Hrs: 12/22/16 19:42 Red Blood Count 3.68, Mean Corpuscular Volume 93.2, Mean Corpuscular Hemoglobin 32.9, Mean Corpuscular Hemoglobin Concent 35.3, Mean Platelet Volume 9.3, Neutrophils (%) (Auto) 52.2, Lymphocytes (%) (Auto) 37.6, Monocytes (%) (Auto) 5.9, Eosinophils (%) (Auto) 3.9, Basophils (%) (Auto) 0.2, Neutrophils # (Auto) 4.87, Lymphocytes # (Auto) 3.50, Monocytes # (Auto) 0.55, Eosinophils # (Auto) 0.36, Basophils # (Auto) 0.02 12/22/16 19:42 Test 12/22/16 17:10 12/22/16 19:42 Urine Color YELLOW Urine Appearance CLEAR (CLEAR) Urine pH 7.0 (4.5-7.5) Urine Specific [place] 1.008 (1.000-1.030) Urine Protein NEG (NEG) Urine Glucose (UA) NEG (NEG) Urine Ketones NEG (NEG) Urine Occult Blood NEG (NEG) Urine Nitrite NEG (NEG) Urine Bilirubin NEG (NEG) Urine Urobilinogen NEG (NEG) Urine Leukocyte Esterase NEG (NEG) Urine Test NEG (NEG) Urine Opiates Screen NEG (NEG) Urine Methadone, Qualitative NEG (NEG) Urine Barbiturates NEG (NEG) Urine Phencyclidine (PCP) Level NEG (NEG) Ur Amphetamine/Methamphetamine NEG (NEG) MDMA (Ecstasy) Screen NEG (NEG) Urine Benzodiazepines Screen NEG (NEG) Urine Cocaine Metabolite NEG (NEG) Urine Marijuana (THC) POS (NEG) Urine Marijuana (THC Carboxy Acid) 383 NG/ML (CUTOFF=5) White Blood Count 9.32 K/uL (4.8-10.8) Red Blood Count 3.68 M/uL (4.2-5.4) Hemoglobin 12.1 g/dL (12.0-16.0) Hematocrit 34.3 % (37-47) Mean Corpuscular Volume 93.2 fL (80-100) Mean Corpuscular Hemoglobin 32.9 pg (25-34) Mean Corpuscular Hemoglobin Concent 35.3 g/dl (32-36) Platelet Count 403 K/uL (130-400) Mean Platelet Volume 9.3 fL (7.4-10.4) Neutrophils (%) (Auto) 52.2 % Lymphocytes (%) (Auto) 37.6 % Monocytes (%) (Auto) 5.9 % Eosinophils (%) (Auto) 3.9 % Basophils (%) (Auto) 0.2 % Neutrophils # (Auto) 4.87 K/uL (1.4-6.5) Lymphocytes # (Auto) 3.50 K/uL (1.2-3.4) Monocytes # (Auto) 0.55 K/uL (0.11-0.59) Eosinophils # (Auto) 0.36 K/uL (0-0.5) Basophils # (Auto) 0.02 K/uL (0-0.2) RDW Standard Deviation 50.1 fL (36.4-46.3) RDW Coefficient of Variation 14.8 % (11.5-14.5) Immature Granulocyte % (Auto) 0.2 % Immature Granulocyte # (Auto) 0.02 K/uL (0.00-0.02) Anion Gap 11.0 mmol/L (3-11) Est Creatinine Clear Calc Drug Dose 61.2 ml/min Estimated GFR () 90.7 Estimated GFR (Non- 78.2 BUN/Creatinine Ratio 20.1 (10-20) Calcium Level 8.4 mg/dl (8.5-10.1) Total Bilirubin 0.1 mg/dl (0.2-1) Direct Bilirubin mg/dl (0-0.2) Aspartate Amino Transf (AST/SGOT) 19 U/L (15-37) Alanine Aminotransferase (ALT/SGPT) 37 U/L (12-78) Alkaline Phosphatase 46 U/L (45-117) Total Protein 6.3 gm/dl (6.4-8.2) Albumin 3.5 gm/dl (3.4-5.0) Globulin 2.8 gm/dl (2.5-4.0) Albumin/Globulin Ratio 1.3 (0.9-2) Thyroid Stimulating Hormone (TSH) 1.570 uIu/ml (0.300-4.500) Human Chorionic Gonadotropin, Qual NEG (NEG) Chemistry Specimen Hemolysis Problem Qualifiers (1) Depression, major, recurrent: Active/Remission status: currently active Major depression episode severity: severe Psychotic features: without psychotic features Qualified Codes: F33.2 - Major depressive disorder, recurrent severe without psychotic features (2) Headache: Headache type: unspecified
[2016-12-27] MEDS: CALCIUM CARBONATE 500 MG CHEWABLE PO PRN ×2 (20:08→23:19)
[2016-12-28] MEDS: ACETAMINOPHEN 325 MG TAB PO PRN ×2 (05:48→19:24)
[2016-12-28 06:59] VITALS: BP_SYST 92; BP_SYST 93; BP_DIAS 60; BP_DIAS 63; PULSE 120; PULSE 91; TEMP 36.9
[2016-12-28] MEDS: FLUOXETINE HCL 20 MG CAP PO SCH (08:12)
[2016-12-28] MEDS: GABAPENTIN 300 MG CAP PO SCH ×3 (08:12→21:16)
[2016-12-28] MEDS: CLONAZEPAM 1 MG TAB PO PRN ×3 (08:12→23:51)
[2016-12-28] MEDS: DOCUSATE SODIUM 100 MG CAP PO SCH ×2 (08:13→21:16)
[2016-12-28] MEDS: PERPHENAZINE 2 MG TAB PO SCH ×2 (08:13→21:17)
--- NOTE | 2016-12-28 09:13 | Psychiatric Progress Notes ---
Progress Note Date of Service Dec 28, 2016. Interval History 51 yo woman admitted voluntarily with severe depression and suicidality. Has had chronic stress related to moving from her apartment where she had lived for 20 yrs. Has had 3 back to back admissions to [facility] starting in September. Chief Complaint "I think I need one more day.". Subjective Patient was seen & assessed interval progress reviewed with Treatment Team. Today the patient says that she is feeling physically anxious as she thinks about discharge and believes that she would benefit from an additional day. She feels that many of her problems have to do with her anger and how to manage it, and would like to be able to finish out the two part group on anger today. She feels that even though she has had 3 [address] the [facility], she is getting the most out of our programming and would like to stay. There is a meeting scheduled at 2 pm with her daughter that she says she is not sure she wants to occur, not wanting to bother her. She has assigned her son the task of contacting her boyfriend's mother to collect the gun she has been keeping for him, but is not sure that this has yet been accomplished. She denies SI. Review of Systems Constitutional: No chills, No fatigue, No fever, No problem reported, No sweats , No weakness, No weight loss ENT: No dental problems, No hearing loss, No nasal symptoms, No problem reported, No sore throat, No tinnitus, No trouble swallowing, No unusual epistaxis Respiratory: No cough, No dyspnea at rest, No dyspnea on exertion, No hemoptysis, No problem reported, No shortness of breath, No sputum, No wheezing Cardiovascular: No PND, No chest pain, No claudication, No edema, No orthopnea , No palpitations, No problem reported Abdomen: No GI bleeding, No constipation, No diarrhea, No nausea, No pain, No problem reported, No vomiting Musculoskeletal: No calf pain, No joint pain, No muscle pain, No problem reported, No swelling Neurologic: No balance problems, No memory loss, No numbness/tingling, No paralysis, No problem reported, No vertigo, No weakness Psychiatric: + anxiety Integumentary: No bleeding, No color change, No itch, No new/changing skin lesions, No problem reported, No rash Sleep Information Total Hours of Sleep: 5.00 Meal Information Percent of Breakfast Consumed: 100 Percent of Lunch Consumed: 100 Percent of Dinner Consumed: 100 Mental Status Exam During interview pt is: alert and oriented, cooperative Appearance: appropriately dressed (in leggings and a T-shirt), appropriately groomed (mildly unkempt), other (bruising on b/l forearms) Eye contact is: good Motor behavior is: steady gait & station, no abnormal motor movements Speech: normal in rate, rhythm & volume Affect: blunted Mood is: anxious Thought process: goal directed Thought content: reality based without delusions Suicidal thought are: present, Plan: denied Homicidal thoughts are: denied Hallucinations: denies auditory, denies visual Cognition: memory grossly intact, attention grossly intact, language grossly intact Intelligence estimated to be: consistent with level of education Insight: impaired Judgement: impaired Impression Andressa is anxious today and wanting to stay til tomorrow to complete this afternoon's group on anger management. There is also a meeting scheduled with her daughter and 2 pm. Will plan on DC tomorrow, and will also confirm that guns have been secured. Continued Inpatient Care The patient requires inpatient care due to the severity of her condition and the risk for self harm if discharged,. Plan (1) Suicidal ideation -Every 15 minute checks for safety. -Work on healthy coping skills any discharge safety plan. -Family meeting with daughter and develop a plan to remove the gun from her residence prior to discharge. 3/4 - Now refusing family meeting, doesn't think she needs it, and says daughter is busy 3/5 - Still refusing family meeting, but advised would need to involve someone to confirm that the gun has been removed prior to discharge. (2) Depression, major, recurrent -The patient does not want to continue taking the mirtazapine, so we'll discontinue it, although she's been on it for less than a week and has not had a full trial. There is a possibility that some of her symptoms could be due to discontinuation syndrome, although she is not able to tell me what dose of venlafaxine XR she was on, she does state she was tapered off of it over a several-day period last week. We discussed a trial of fluoxetine, as she is requesting a different antidepressant, and this would treat discontinuation syndrome as well as target symptoms of depression and anxiety. She is in agreement after reviewing the risks, benefits, and side effects, so we'll start 10 mg daily today, and increase to 20 mg daily tomorrow. -Continue trazodone as needed for sleep. -Work on behavioral techniques for improving mood, including increased socialization and structure at home. Encouraged her to limit time online and on social media. -Coordinate care with outpatient providers. She is currently seeing Dr. Watson at [facility] [place], but states she is switching to [place] and has an intake there 01/10. She may benefit from outpatient case management. 12/24 - Increase fluoxetine to 20mg daily - Q 15 min checks for safety - Encourage participation in group and individual counseling 12/25 - Continue current meds - Case management referral to [facility] initiated. Needs therapy referral. 12/27 - Patient making arrangements to have gun removed from her home (3) PTSD (post-traumatic stress disorder) -Start fluoxetine as above. Continue home doses of perphenazine, gabapentin, and clonazepam. She is interested in decreasing the doses of some of these medications, but will wait until she has stabilized on the new antidepressant. -Attempted to educate the patient about the importance of therapy to treat chronic PTSD, and the need to engage in therapy for an extended period of time in order to see results. She is willing to consider returning to see Shakila at [facility] 12/25 - Again discussed importance of therapy, and is willing to be referred to someone, but wants someone who specialized in trauma therapy. (4) Marijuana use Educated the patient about the risks of chronic cannabis use, including worsening of mood and anxiety, interference with medications, and chronic GI symptoms. Reviewed the recommendations for abstinence. (5) Headache Patient may benefit from seeing neurology as an outpatient. She is on a nonnarcotic treatment plan in the emergency room, and do not recommend use of narcotic pain medications given concurrent use of benzodiazepines, polypharmacy , and the risk of abuse. (6) Functional abdominal pain syndrome Follow-up with PCP, Dr. Carlos. (7) Anemia Follow-up with PCP, Dr. Carlos. She has had poor oral intake and low appetite recently, and will encourage healthy diet here. Discharge / Aftercare Planning Primary Care Physician: Name: unsure Psychiatrist: Name: Dr Wang at [facility] Phone Number: [phone] Date of Appointment: Jan 14, 2017 Time of Appointment: 11:15 Therapist: Name: Maritza at [facility] in [place] Phone Number: [phone] Date of Appointment: Jan 07, 2017 Time of Appointment: 8:00 pm Appointment Notes: [address] in [place] [employer] Supervisor: Name: nicoals Visit Code E&M Code: 44491 Inventory Assets Strengths: "My will to persevere." Desire to get well Needs: Engagement in therapy, increased structure and socialization Risk Factors Assessment : Yes /single/: Yes Higher / Fall in social status: No Health problems: Yes Mental Health Diagnoses: Yes Substance use disorders: Yes Previous attempt: Yes Previous attempt;highly lethal: Yes Previous attempt; planned: No Previous attempt; didn't tell: No Family history of suicide: Yes Previous psychiatric stay: Yes Hopelessness: Yes Smoker: No Protective Factors Assessment Uatsdin beliefs: Yes : No Responsible for young children: No Employed: No Stable relationships: No Supportive family: Yes Good rapport with provider: No Data Vital Signs Last 24 Hrs: Date Time Temp Pulse Resp B/P Pulse Ox O2 Delivery O2 Flow Rate FiO2 12/28/16 06:59 36.9 91 16 92/60 120 93/63 Meds Administered Last 24 Hrs: Meds Administered (Past 24Hrs) Medications (Trade) Dose Ordered Sig/Rafia Route Start Time Stop Time Status Last Admin Dose Admin Al Hydroxide/Mg Trisilicate (Gaviscon Chew Tab) 2 tab Q6H PRN PO 12/26/16 16:30 01/25/17 16:29 12/26/16 19:08 2 TAB Lab Results Last 24 Hrs: 12/22/16 19:42 Red Blood Count 3.68, Mean Corpuscular Volume 93.2, Mean Corpuscular Hemoglobin 32.9, Mean Corpuscular Hemoglobin Concent 35.3, Mean Platelet Volume 9.3, Neutrophils (%) (Auto) 52.2, Lymphocytes (%) (Auto) 37.6, Monocytes (%) (Auto) 5.9, Eosinophils (%) (Auto) 3.9, Basophils (%) (Auto) 0.2, Neutrophils # (Auto) 4.87, Lymphocytes # (Auto) 3.50, Monocytes # (Auto) 0.55, Eosinophils # (Auto) 0.36, Basophils # (Auto) 0.02 12/22/16 19:42 Test 12/22/16 17:10 12/22/16 19:42 Urine Color YELLOW Urine Appearance CLEAR (CLEAR) Urine pH 7.0 (4.5-7.5) Urine Specific [place] 1.008 (1.000-1.030) Urine Protein NEG (NEG) Urine Glucose (UA) NEG (NEG) Urine Ketones NEG (NEG) Urine Occult Blood NEG (NEG) Urine Nitrite NEG (NEG) Urine Bilirubin NEG (NEG) Urine Urobilinogen NEG (NEG) Urine Leukocyte Esterase NEG (NEG) Urine Test NEG (NEG) Urine Opiates Screen NEG (NEG) Urine Methadone, Qualitative NEG (NEG) Urine Barbiturates NEG (NEG) Urine Phencyclidine (PCP) Level NEG (NEG) Ur Amphetamine/Methamphetamine NEG (NEG) MDMA (Ecstasy) Screen NEG (NEG) Urine Benzodiazepines Screen NEG (NEG) Urine Cocaine Metabolite NEG (NEG) Urine Marijuana (THC) POS (NEG) Urine Marijuana (THC Carboxy Acid) 383 NG/ML (CUTOFF=5) White Blood Count 9.32 K/uL (4.8-10.8) Red Blood Count 3.68 M/uL (4.2-5.4) Hemoglobin 12.1 g/dL (12.0-16.0) Hematocrit 34.3 % (37-47) Mean Corpuscular Volume 93.2 fL (80-100) Mean Corpuscular Hemoglobin 32.9 pg (25-34) Mean Corpuscular Hemoglobin Concent 35.3 g/dl (32-36) Platelet Count 403 K/uL (130-400) Mean Platelet Volume 9.3 fL (7.4-10.4) Neutrophils (%) (Auto) 52.2 % Lymphocytes (%) (Auto) 37.6 % Monocytes (%) (Auto) 5.9 % Eosinophils (%) (Auto) 3.9 % Basophils (%) (Auto) 0.2 % Neutrophils # (Auto) 4.87 K/uL (1.4-6.5) Lymphocytes # (Auto) 3.50 K/uL (1.2-3.4) Monocytes # (Auto) 0.55 K/uL (0.11-0.59) Eosinophils # (Auto) 0.36 K/uL (0-0.5) Basophils # (Auto) 0.02 K/uL (0-0.2) RDW Standard Deviation 50.1 fL (36.4-46.3) RDW Coefficient of Variation 14.8 % (11.5-14.5) Immature Granulocyte % (Auto) 0.2 % Immature Granulocyte # (Auto) 0.02 K/uL (0.00-0.02) Anion Gap 11.0 mmol/L (3-11) Est Creatinine Clear Calc Drug Dose 61.2 ml/min Estimated GFR () 90.7 Estimated GFR (Non- 78.2 BUN/Creatinine Ratio 20.1 (10-20) Calcium Level 8.4 mg/dl (8.5-10.1) Total Bilirubin 0.1 mg/dl (0.2-1) Direct Bilirubin mg/dl (0-0.2) Aspartate Amino Transf (AST/SGOT) 19 U/L (15-37) Alanine Aminotransferase (ALT/SGPT) 37 U/L (12-78) Alkaline Phosphatase 46 U/L (45-117) Total Protein 6.3 gm/dl (6.4-8.2) Albumin 3.5 gm/dl (3.4-5.0) Globulin 2.8 gm/dl (2.5-4.0) Albumin/Globulin Ratio 1.3 (0.9-2) Thyroid Stimulating Hormone (TSH) 1.570 uIu/ml (0.300-4.500) Human Chorionic Gonadotropin, Qual NEG (NEG) Chemistry Specimen Hemolysis Problem Qualifiers (1) Depression, major, recurrent: Active/Remission status: currently active Major depression episode severity: severe Psychotic features: without psychotic features Qualified Codes: F33.2 - Major depressive disorder, recurrent severe without psychotic features (2) Headache: Headache type: unspecified
[2016-12-28] MEDS: IBUPROFEN 800 MG TAB PO PRN (13:39)
[2016-12-28] MEDS: CALCIUM CARBONATE 500 MG CHEWABLE PO PRN ×2 (19:29→23:48)
[2016-12-28] MEDS: TRAZODONE HCL 50 MG TAB PO PRN (21:16)
[2016-12-29 06:38] VITALS: BP_SYST 95; BP_SYST 98; BP_DIAS 62; BP_DIAS 65; PULSE 89; PULSE 96; TEMP 37
[2016-12-29] MEDS: FLUOXETINE HCL 20 MG CAP PO SCH (07:48)
[2016-12-29] MEDS: PERPHENAZINE 2 MG TAB PO SCH (07:48)
[2016-12-29] MEDS: DOCUSATE SODIUM 100 MG CAP PO SCH (07:48)
[2016-12-29] MEDS: GABAPENTIN 300 MG CAP PO SCH (07:48)
[2016-12-29] MEDS: CLONAZEPAM 1 MG TAB PO PRN (07:53)
[2016-12-29] MEDS ORDERED: FLUO20CA36 PO (08:28)
[2016-12-29] MEDS: ACETAMINOPHEN 325 MG TAB PO PRN (08:44)
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
== END 2016-12-29 11:28 | disposition home or self-care (01) | DRG 885 ==
LOC: C.EDB 14:32 → CANBEDREQ 20:45 → C.MHU 22:09
PROVIDERS: ADMIT Psychiatry & Neurology Psychiatry; ATTEND Psychiatry & Neurology Psychiatry
DX: F33.2 Major depressive disorder, recurrent severe without psychotic features (principal); R45.851 Suicidal ideations; F43.10 Post-traumatic stress disorder, unspecified; R51 Headache; F41.9 Anxiety disorder, unspecified; D64.9 Anemia, unspecified; F12.10 Cannabis abuse, uncomplicated; R10.9 Unspecified abdominal pain; G89.29 Other chronic pain; Z79.899 Other long term (current) drug therapy; Z79.1 Long term (current) use of non-steroidal anti-inflammatories (NSAID)

== ENCOUNTER → 2017-02-09 | Outpatient (CLI) | payer OTHER ==
[~2017-02-09] MED LIST changes: -ASPI-391; +FLUO20CA36 PO; +GABA1CAP4 PO; +KLN1X PO; -MIRT15TA2 PO; -NRN100 PO; +ONDA4TAB10 UT; +TRAZ-120 PO; -VENL1CAP92 PO; -VENL75CA PO
[2017-02-09 13:28] LABS: BASO % 0.2 %; BASO ABS # 0.02 K/uL (0-0.2); COMPLETE YES; EOS % 1.7 %; HEMATOCRIT 38.7 % (37-47); IG% 0.2 %; LYMPH % 33.3 %; LYMPH ABS # 3.22 K/uL (1.2-3.4); MEAN CORPUSCULAR HGB CONC 33.3 g/dl (32-36); MONO % 4.4 %; NEUT % 60.2 %; PLATELET COUNT 510 K/uL (130-400); RED BLOOD COUNT 4.03 M/uL (4.2-5.4); WHITE BLOOD COUNT 9.67 K/uL (4.8-10.8)
[2017-02-09 13:48] LABS: ESTIMATED AVERAGE GLUCOSE 123 mg/dl; HA1C FLAG Normal (Normal)
[2017-02-09 19:09] LABS: ALT/SGPT 18 U/L (12-78); AST/SGOT 10 U/L (15-37); BLOOD UREA NITROGEN 8 mg/dl (7-18); CALCIUM 8.8 mg/dl (8.5-10.1); CARBON DIOXIDE 25 mmol/L (21-32); CHLORIDE 105 mmol/L (98-107); CREATININE 0.84 mg/dl (0.60-1.20); GLUCOSE 96 mg/dl (70-99); SODIUM 138 mmol/L (136-145)
[2017-02-09 19:15] LABS: ALB/GLOB RATIO 1.3 (0.9-2); ALKALINE PHOSPHATASE 45 U/L (45-117); CHOLESTEROL 192 mg/dl (0-200); CHOLESTEROL/HDL RATIO 2.8; FERRITIN 6.7 ng/ml (8.0-388.0); HDL CHOLESTEROL 68 mg/dl; LDL CHOLESTEROL CALCULATED 105 mg/dl; TRIGLYCERIDES 96 mg/dl (0-150); VERY LOW DENSITY LIPOPROT CALC 19 mg/dl
== END | disposition home or self-care (01) ==
LOC: C.LABBC 10:54
PROVIDERS: ATTEND Internal Medicine Geriatric Medicine
DX: E28.2 Polycystic ovarian syndrome (principal); K22.70 Barrett's esophagus without dysplasia; K21.9 Gastro-esophageal reflux disease without esophagitis; R10.9 Unspecified abdominal pain; F41.8 Other specified anxiety disorders; E11.43 Type 2 diabetes mellitus with diabetic autonomic (poly)neuropathy; D64.9 Anemia, unspecified

== ENCOUNTER → 2017-03-16 | Outpatient (CLI) | payer OTHER ==
[2017-03-16 15:41] LABS: URINE APPEARANCE CLEAR (CLEAR); URINE BILIRUBIN NEG (NEG); URINE COLOR DK YELLOW; URINE NITRITE POS (NEG); URINE PH 5.5 (4.5-7.5); URINE SPECIFIC GRAVITY 1.007 (1.000-1.030); UROBILINOGEN NEG (NEG)
[2017-03-16 15:48] LABS: MANUAL MICROSCOPIC REQUIRED? NO; REVIEW REQ? YES
== END | disposition home or self-care (01) ==
LOC: C.LAB1850 13:43
PROVIDERS: ATTEND Obstetrics & Gynecology
DX: R39.9 Unspecified symptoms and signs involving the genitourinary system (principal)

== ENCOUNTER → 2017-03-16 | Outpatient (CLI) | payer OTHER | END | disposition home or self-care (01) | LOC: C.PAPS 10:03 | PROVIDERS: ATTEND Obstetrics & Gynecology | DX: Z01.419 Encounter for gynecological examination (general) (routine) without abnormal findings (principal) ==

== ENCOUNTER → 2017-08-04 | Outpatient (CLI) | payer OTHER ==
[~2017-08-04] MED LIST changes: -TRAZ-120 PO; +TRAZ1TAB5 PO
== END | disposition home or self-care (01) ==
LOC: C.LABSPEC 17:27
PROVIDERS: ATTEND Physician Assistant
DX: N89.8 Other specified noninflammatory disorders of vagina (principal)

== ENCOUNTER → 2017-08-15 | Outpatient (CLI) | payer OTHER ==
[~2017-08-15] MED LIST changes: +TRAZ-120 PO; -TRAZ1TAB5 PO
== END | disposition home or self-care (01) ==
LOC: C.LAB1850 14:15
PROVIDERS: ATTEND Physician Assistant
DX: R10.2 Pelvic and perineal pain (principal); N89.8 Other specified noninflammatory disorders of vagina; Z11.3 Encounter for screening for infections with a predominantly sexual mode of transmission

== ENCOUNTER 2017-10-25 11:31 | Emergency (ER) | payer OTHER ==
[~2017-10-25] VITALS: Ht 157.5 cm; Wt 52.0 kg
[~2017-10-25 11:31] MED LIST changes: -CLON0.5T9 PO; -CYCL10TA7 PO; -DSY100 PO; -EFF/375 PO; -GABA-113 PO; -LXP10 PO; -MELO7.5T5 PO; -NRN100 PO; -OXYC-737 PO
[2017-10-25 11:37] VITALS: Ht 157.5 cm; Wt 52.0 kg
[2017-10-25] MEDS ORDERED: NRN100 PO (11:48)
[2017-10-25] MEDS ORDERED: LORAZEPAM 1 MG TAB PO STA (12:19)
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
[2017-10-25 14:32] LABS: BASO % 0.4 %; BASO ABS # 0.03 K/uL (0-0.2); EOS % 1.4 %; HEMATOCRIT 38.8 % (37-47); HEMOGLOBIN 13.1 g/dL (12.0-16.0); IG# 0.01 K/uL (0.00-0.02); LYMPH % 39.1 %; LYMPH ABS # 2.85 K/uL (1.2-3.4); MEAN CELL VOLUME 95.3 fL (80-100); MEAN CORPUSCULAR HEMOGLOBIN 32.2 pg (25-34); MEAN CORPUSCULAR HGB CONC 33.8 g/dl (32-36); MEAN PLATELET VOLUME 10.2 fL (7.4-10.4); MONO % 3.8 %; MONO ABS # 0.28 K/uL (0.11-0.59); NEUT % 55.2 %; NEUT ABS # 4.01 K/uL (1.4-6.5); PLATELET COUNT 432 K/uL (130-400); RED CELL DISTRIBUTION WIDTH CV 15.5 % (11.5-14.5); RED CELL DISTRIBUTION WIDTH SD 54.4 fL (36.4-46.3); WHITE BLOOD COUNT 7.28 K/uL (4.8-10.8)
[2017-10-25 15:30] LABS: ALBUMIN 4.2 gm/dl (3.4-5.0); ALT/SGPT 18 U/L (12-78); AST/SGOT 10 U/L (15-37); BLOOD UREA NITROGEN 6 mg/dl (7-18); CALCIUM 9.5 mg/dl (8.5-10.1); CARBON DIOXIDE 20 mmol/L (21-32); CREATININE 0.88 mg/dl (0.60-1.20); GLUCOSE 92 mg/dl (70-99); POTASSIUM 3.4 mmol/L (3.5-5.1); SODIUM 136 mmol/L (136-145)
[2017-10-25 15:38] LABS: ALKALINE PHOSPHATASE 53 U/L (45-117)
[2017-10-25 16:22] VITALS: BP 127/87; PULSE 97; TEMP 36.3; O2SAT 96
[2017-10-28] MEDS ORDERED: OXYC-737 PO (22:46)
[2018-05-18] MEDS ORDERED: LXP10 PO (14:58)
[2018-05-18] MEDS ORDERED: MELO7.5T5 PO (14:58)
[2018-05-18] MEDS ORDERED: GABA-113 PO (14:58)
[2018-05-18] MEDS ORDERED: DSY100 PO (14:58)
[2018-05-18] MEDS ORDERED: CLON0.5T9 PO (14:58)
== END 2017-10-25 16:23 | disposition home or self-care (01) ==
LOC: C.EDB 11:33 → C.EDA 16:23
DX: F33.0 Major depressive disorder, recurrent, mild (principal); E87.6 Hypokalemia; F41.9 Anxiety disorder, unspecified; Z98.890 Other specified postprocedural states; R10.2 Pelvic and perineal pain; Z79.899 Other long term (current) drug therapy

== ENCOUNTER → 2017-10-25 | Outpatient (CLI) | payer OTHER ==
[~2017-10-25] MED LIST changes: +CLON0.5T9 PO; +CYCL10TA7 PO; +DSY100 PO; +EFF/375 PO; +GABA-113 PO; +GABA-1219 PO; -GABA1CAP4 PO; +LXP10 PO; +MELO7.5T5 PO; +NRN100 PO; +OXYC-737 PO; -TRAZ-120 PO; +TRAZ1TAB48 PO
== END | disposition home or self-care (01) ==
LOC: C.LABSPEC 14:40
PROVIDERS: ATTEND Obstetrics & Gynecology
DX: R10.2 Pelvic and perineal pain (principal)

== ENCOUNTER 2017-10-28 19:31 | Emergency (ER) | payer OTHER ==
[~2017-10-28] VITALS: Ht 157.5 cm; Wt 59.5 kg
[2017-10-28 19:31] VITALS: TEMP 36.6; O2SAT 99; Ht 157.5 cm; Wt 59.5 kg
[~2017-10-28 19:31] MED LIST changes: -FLUO20CA36 PO; -GABA-1219 PO; -IBUP-103 PO; -KLN1X PO; +NRN100 PO; -ONDA4TAB10 UT; -PERP1TAB10 PO; -PERP1TAB5 PO; -PROM25TA16 PO; -TRAZ1TAB48 PO
[2017-10-28] MEDS ORDERED: SODIUM CHLORIDE 0.9% 1000ML 1,000 ML IV STA (19:48)
[2017-10-28] MEDS ORDERED: LORAZEPAM 2 MG/ML 1 ML VIAL IV STA (19:48)
[2017-10-28] MEDS ORDERED: FENTANYL CITRATE INJ 50 MCG/1 ML 2 ML VIAL IV STA (19:48)
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
[2017-10-28] MEDS ORDERED: OPTIRAY 320 IV PRN (20:00)
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
[2017-10-28] MEDS ORDERED: HYDROmorphone INJ 1 MG/ML SYR IV STA (21:10)
[2017-10-28 21:20] LABS: ISTAT CREATININE 0.8 mg/dl (0.6-1.3); ISTAT IONIZED CALCIUM 1.16 mmol/l (1.12-1.32); ISTAT POTASSIUM 3.3 mEq/L (3.3-5.0)
[2017-10-28 21:23] LABS: BASO % 0.1 %; BASO ABS # 0.01 K/uL (0-0.2); EOS % 0.2 %; EOS ABS # 0.02 K/uL (0-0.5); HEMATOCRIT 31.6 % (37-47); HEMOGLOBIN 10.8 g/dL (12.0-16.0); IG# 0.04 K/uL (0.00-0.02); LYMPH % 9.6 %; LYMPH ABS # 1.19 K/uL (1.2-3.4); MEAN CELL VOLUME 96.3 fL (80-100); MEAN CORPUSCULAR HEMOGLOBIN 32.9 pg (25-34); MEAN CORPUSCULAR HGB CONC 34.2 g/dl (32-36); MEAN PLATELET VOLUME 9.7 fL (7.4-10.4); MONO % 4.6 %; MONO ABS # 0.57 K/uL (0.11-0.59); NEUT % 85.2 %; NEUT ABS # 10.52 K/uL (1.4-6.5); PLATELET COUNT 413 K/uL (130-400); RED CELL DISTRIBUTION WIDTH CV 15.5 % (11.5-14.5); RED CELL DISTRIBUTION WIDTH SD 54.7 fL (36.4-46.3); WHITE BLOOD COUNT 12.35 K/uL (4.8-10.8)
[2017-10-28 21:48] LABS: CALCIUM 8.4 mg/dl (8.5-10.1); CREATININE 0.87 mg/dl (0.60-1.20); POTASSIUM 3.4 mmol/L (3.5-5.1)
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
[2017-10-28] MEDS ORDERED: OXYCODONE IR HOME PACK PO ONE (22:30)
[2017-10-28] MEDS ORDERED: OXYC1TAB3 PO (22:46)
[2017-10-28 23:00] VITALS: BP 116/68; PULSE 97; O2SAT 96
[2017-10-28] MEDS ORDERED: ONDANSETRON HOME PACK 4MG OD TAB PO ONE (23:15)
== END 2017-10-28 23:00 | disposition home or self-care (01) ==
LOC: EDBD 19:31 → C.EDC 19:36
DX: T14.8XXA Other injury of unspecified body region, initial encounter (principal); S83.92XA Sprain of unspecified site of left knee, initial encounter; V03.10XA Pedestrian on foot injured in collision with car, pick-up truck or van in traffic accident, initial encounter; Y92.410 Unspecified street and highway as the place of occurrence of the external cause; D64.9 Anemia, unspecified; F32.9 Major depressive disorder, single episode, unspecified; K58.9 Irritable bowel syndrome, unspecified; K57.92 Diverticulitis of intestine, part unspecified, without perforation or abscess without bleeding; F43.10 Post-traumatic stress disorder, unspecified; K21.0 Gastro-esophageal reflux disease with esophagitis; Z91.5 Personal history of self-harm; Z83.3 Family history of diabetes mellitus; Z82.49 Family history of ischemic heart disease and other diseases of the circulatory system

== ENCOUNTER 2017-11-01 10:49 | Emergency (ER) | payer OTHER ==
[~2017-11-01 10:49] MED LIST changes: +OXYC1TAB3 PO
[2017-11-01 10:52] VITALS: TEMP 36.7; Ht 157.5 cm
[2017-11-01] MEDS ORDERED: OPTIRAY 320 IV PRN (11:45)
--- NOTE | 2017-11-01 12:07 | DIAGNOSTIC IMAGING REPORT ---
R ELBOW MIN 3 VIEWS ROUTINE CLINICAL HISTORY: R elbow pain pain COMPARISON: None. DISCUSSION: The bones and joint spaces appear intact. There is no evidence of fracture, dislocation or bony disease. There is no evidence for soft tissue swelling. IMPRESSION: Negative study. The above report was generated using voice recognition software. It may contain grammatical, syntax or spelling errors. Electronically signed by: Joseph Mullins M.D. 11/01/2017 12:05 PM Dictated Date/Time: 11/01/2017 12:04 PM
[2017-11-01] MEDS ORDERED: CYCL10TA7 PO (12:11)
[2017-11-01] MEDS ORDERED: OXYCODONE HCL IR 5 MG TAB (IMMEDIATE RELEASE) PO STA (12:19)
[2017-11-01 12:25] LABS: ISTAT CREATININE 0.7 mg/dl (0.6-1.3); ISTAT IONIZED CALCIUM 1.01 mmol/l (1.12-1.32); ISTAT POTASSIUM 3.8 mEq/L (3.3-5.0)
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
[2017-11-01] MEDS ORDERED: LORAZEPAM INJ 0.5 MG in SYRINGE 0.25 ML IV STA (13:37)
[2017-11-01] MEDS ORDERED: LORAZEPAM 2 MG/ML 1 ML VIAL IV ONE (13:37)
[2017-11-01 14:48] VITALS: BP 115/74; PULSE 86; O2SAT 100
== END 2017-11-01 14:49 | disposition short-term general hospital (02) ==
LOC: C.EDB 10:51 → C.EDD 14:49
DX: S36.113A Laceration of liver, unspecified degree, initial encounter (principal); S50.01XA Contusion of right elbow, initial encounter; V03.00XA Pedestrian on foot injured in collision with car, pick-up truck or van in nontraffic accident, initial encounter; R10.30 Lower abdominal pain, unspecified; R51 Headache; K21.0 Gastro-esophageal reflux disease with esophagitis; K58.9 Irritable bowel syndrome, unspecified; F32.9 Major depressive disorder, single episode, unspecified; K57.32 Diverticulitis of large intestine without perforation or abscess without bleeding; D64.9 Anemia, unspecified; Z79.899 Other long term (current) drug therapy; Z83.3 Family history of diabetes mellitus; Z82.49 Family history of ischemic heart disease and other diseases of the circulatory system

== ENCOUNTER → 2017-11-11 | Outpatient (CLI) | payer OTHER ==
[~2017-11-11] MED LIST changes: +CYCL10TA7 PO
== END | disposition home or self-care (01) ==
LOC: C.RDSM 08:00
PROVIDERS: ATTEND Physical Medicine & Rehabilitation Sports Medicine
DX: M25.511 Pain in right shoulder (principal); S83.512A Sprain of anterior cruciate ligament of left knee, initial encounter; S83.422A Sprain of lateral collateral ligament of left knee, initial encounter; X58.XXXA Exposure to other specified factors, initial encounter

== ENCOUNTER 2017-11-26 22:18 | Emergency (ER) | payer OTHER ==
[~2017-11-26] VITALS: Ht 157.5 cm; Wt 53.0 kg
[2017-11-26] MEDS ORDERED: ONDANSETRON INJ 2 MG/ML 2 ML VIAL ONE (22:23)
[2017-11-26 22:29] VITALS: TEMP 36.8; Ht 157.5 cm; Wt 53.0 kg
[2017-11-26] MEDS ORDERED: EFF/375 PO (22:58)
[2017-11-26] MEDS ORDERED: PROMETHAZINE HCL INJ 12.5 MG in SODIUM CHLORIDE 0.9% 50ML 50 ML IV STA (23:17)
[2017-11-26] MEDS ORDERED: SODIUM CHLORIDE 0.9% 1000ML 1,000 ML IV STA (23:17)
[2017-11-26] MEDS ORDERED: KETOROLAC TROMETHAMINE 30 MG/ML VIAL IV STA (23:17)
[2017-11-26] MEDS ORDERED: LORAZEPAM 2 MG/ML 1 ML VIAL IV STA (23:21)
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
[2017-11-27 00:37] LABS: BASO % 0.1 %; BASO ABS # 0.01 K/uL (0-0.2); EOS % 0.2 %; EOS ABS # 0.02 K/uL (0-0.5); HEMOGLOBIN 12.4 g/dL (12.0-16.0); IG# 0.04 K/uL (0.00-0.02); LYMPH % 8.1 %; LYMPH ABS # 0.99 K/uL (1.2-3.4); MEAN CELL VOLUME 97.6 fL (80-100); MEAN CORPUSCULAR HEMOGLOBIN 32.7 pg (25-34); MEAN CORPUSCULAR HGB CONC 33.5 g/dl (32-36); MEAN PLATELET VOLUME 10.2 fL (7.4-10.4); MONO % 2.6 %; MONO ABS # 0.32 K/uL (0.11-0.59); NEUT % 88.7 %; NEUT ABS # 10.89 K/uL (1.4-6.5); PLATELET COUNT 374 K/uL (130-400); RED CELL DISTRIBUTION WIDTH CV 16.4 % (11.5-14.5); RED CELL DISTRIBUTION WIDTH SD 59.1 fL (36.4-46.3); WHITE BLOOD COUNT 12.27 K/uL (4.8-10.8)
[2017-11-27 00:57] LABS: ALBUMIN 3.7 gm/dl (3.4-5.0); CALCIUM 8.5 mg/dl (8.5-10.1); CREATININE 0.8 mg/dl (0.60-1.20); POTASSIUM 3.7 mmol/L (3.5-5.1)
[2017-11-27 00:59] LABS: TOTAL PROTEIN 6.9 gm/dl (6.4-8.2)
[2017-11-27] MEDS ORDERED: MoRPHine SULFATE 4 MG/ML 1 ML CARP\\VIAL IV STA (01:02)
[2017-11-27] MEDS ORDERED: MoRPHine SULFATE 2 MG/ML CARP ONE (01:05)
[2017-11-27] MEDS ORDERED: HYDROmorphone INJ 1 MG/ML SYR IV STA (02:09)
[2017-11-27 03:53] VITALS: BP 114/64; PULSE 105; O2SAT 98
== END 2017-11-27 04:05 | disposition home or self-care (01) ==
LOC: EDBD 22:18 → C.EDB 22:20
DX: R10.84 Generalized abdominal pain (principal); R11.2 Nausea with vomiting, unspecified; F32.9 Major depressive disorder, single episode, unspecified; F12.11 Cannabis abuse, in remission; D64.9 Anemia, unspecified; K58.9 Irritable bowel syndrome, unspecified; K21.0 Gastro-esophageal reflux disease with esophagitis; F43.10 Post-traumatic stress disorder, unspecified; Z87.891 Personal history of nicotine dependence; Z83.3 Family history of diabetes mellitus

== ENCOUNTER → 2018-01-11 | Outpatient (CLI) | payer OTHER ==
[~2018-01-11] MED LIST changes: +EFF/375 PO
== END | disposition home or self-care (01) ==
LOC: C.RDSM 19:08
PROVIDERS: ATTEND Physical Medicine & Rehabilitation Sports Medicine
DX: M79.641 Pain in right hand (principal)

== ENCOUNTER 2021-05-27 10:17 | Inpatient (IN) ==
[2021-05-27 11:25] LABS: Basophils # (auto) 0.03 K/uL (0-0.2); Basophils % (auto) 0.5 %; Eosinophils % (auto) 1.6 %; Hematocrit (blood only) 39.3 % (37-47); Hemoglobin 13.4 g/dL (12.0-16.0); Immature Granulocytes # (auto) 0.01 K/uL (0.00-0.02); Immature Granulocytes % (auto) 0.2 %; Lymphocytes # (auto) 2.58 K/uL (1.2-3.4); Lymphocytes % (auto) 41.1 %; Mean Corpuscular Hgb Conc 34.1 g/dL (32-36); Mean Corpuscular Volume 99.7 fL (80-100); Mean Platelet Volume 9.8 fL (7.4-10.4); Monocytes # (auto) 0.38 K/uL (0.11-0.59); Monocytes % (auto) 6.1 %; Neutrophils # (auto) 3.17 K/uL (1.4-6.5); Neutrophils % (auto) 50.5 %; Platelet Count 334 K/uL (130-400); RDW Coefficient of Variation 12.5 % (11.5-14.5); RDW Standard Deviation 46.1 fL (36.4-46.3); Red Blood Count 3.94 M/uL (4.2-5.4); White Blood Count 6.27 K/uL (4.8-10.8)
[2021-05-27 11:35] LABS: Appearance Urine Clear (Clear); Bilirubin Urine Negative (Negative); Blood Urine Negative (Negative); Color Urine Yellow; Glucose Urine UA Negative (Negative); Ketones Urine Negative (Negative); Leukocyte Esterase Urine Negative (Negative); Nitrite Urine Negative (Negative); Protein Urine Negative (Negative); Specific Gravity Urine 1.003 (1.000-1.030); Urobilinogen Urine Negative (Negative); pH Urine 6.5 (4.5-7.5)
[2021-05-27 11:50] LABS: Albumin Level 3.6 gm/dl (3.4-5.0); BUN Creatinine Ratio 29.6 (10-20); Creatinine Clr Calc Pharmacy 68.9 ml/min; Est GFR (African American) 107.5 ml/min; Est GFR (Non-African American) 92.7 ml/min; Potassium 4.5 mmol/L (3.5-5.1)
[2021-05-27 11:52] LABS: Acetaminophen < 2 ug/ml (10-30); Salicylate < 1.7 mg/dl (2.8-20)
[2021-05-27 12:00] LABS: Albumin Globulin Ratio 1.1 (0.9-2); Bilirubin,Total 0.2 mg/dl (0.2-1); Globulin 3.2 gm/dl (2.5-4.0); Thyroid Stimulating Hormone 0.478 uIu/ml (0.300-4.500); Total Protein 6.8 gm/dl (6.4-8.2)
[2021-05-27 12:20] LABS: Amphetamines+Metham, Urine Neg (Neg); Barbiturates, Urine Neg (Neg); Benzodiazepine, Urine Neg (Neg); Cocaine, Urine Neg (Neg); MDMA (Ecstacy), Urine Neg (Neg); Methadone, Urine Neg (Neg); Opiate, Urine Neg (Neg); Phencyclidine, Urine Neg (Neg)
--- NOTE | 2021-05-27 14:09 | Emergency Department Note ---
Impression & Plan Mood disorder ED Provider Note NAME: ABBY PASTOR AGE: 55 SEX: F : 1965 ARRIVES VIA: Walk-In INFORMANT: Patient, ED PROVIDER(S): Keven Adams MD CHIEF COMPLAINT: Anxiety HPI: Records review reveals this patient was in the emergency department on April 28 for anxiety. This a 55-year-old female who presents emergency department complaining of anxiety. The patient reports she has a history of posttraumatic stress disorder. Much of her PTSD is brought on according to her from fights in the emergency department over her diabetic status. The patient reports she has not taken anything for the anxiety to make it any better or worse. She reports thinking about her past stressors and life makes her anxiety worse. ROS: See above HPI for pertinent positives & negatives. A total of 10 systems reviewed and were otherwise negative. PAST MEDICAL HISTORY: See Below PAST SURGICAL HISTORY: See Below FAMILY HISTORY: See Below SOCIAL HISTORY: See Below HOME MEDICATIONS: See Below ALLERGIES: See Below VITALS: See Below PHYSICAL EXAMINATION: VITAL SIGNS - Vital signs and nursing notes were reviewed. GENERAL -55 -year-old female appearing stated age who is in no acute distress. Pt is pacing around the room, appears agitated SKIN - Without rashes. HEAD - NC/AT. EYES - PERRL with EOMI bilaterally. Sclera anicteric. Palpebral conjunctiva pink and moist with no injection noted. EARS - No deformities of external structures noted on gross examination bilaterally. NOSE - Midline and without cyanosis. No epistaxis or purulent drainage noted. Septum midline without deviation or septal hematoma noted. MOUTH/OROPHARYNX - Without perioral cyanosis. Buccal mucosa pink and moist and without leukoplakia. Tongue midline with equal elevation of palate bilaterally. No tonsillar hypertrophy, erythema, or exudates noted. NECK - Neck with FROM. Supple to palpation. LUNGS - Chest wall symmetric without accessory muscle use, intercostals retractions, or central cyanosis. Normal vesicular breath sounds CTA B/L. No wheezes, rales, or rhonchi appreciated. CARDIAC - RRR with S1/S2. No murmur, rubs, or gallops appreciated. ABDOMEN - Abdominal contour without pulsations or visible masses. BS normoactive all four quadrants. EXTREMITIES - No clubbing or peripheral cyanosis. No pretibial edema present. +3/5 radial, posterior tibial, and dorsalis pedis pulses palpated throughout. +5/5 strength noted in UE/LE bilaterally. NEUROLOGIC - Cranial nerves II through XII grossly intact. Sensory intact to light touch throughout. Patellar reflexes +2/4. PSYCH - A&Ox3 and cooperates fully with examiner. Pt is very pleasant and interacts well with examiner. MEDICAL DECISION MAKING: Patient was seen and evaluated as above in room A6. Review was performed of nursing notes and vital signs. I did review pertinent previous visits and patient history. After obtaining a thorough history and physical examination the above work up was performed. This a 55-year-old female who presents emergency department over concerns about increasing PTSD as well as increasing anxiety that has been ongoing for the past month. The patient does not have an elevation in her white blood cell count was medically cleared by me. She is positive for marijuana. She was independently evaluated by psychiatric case management and swabbed for Covid. An order was placed for continuous cardiac monitoring. The monitor shows a rate of 117 with Normal SInus rhythm. The patient was evaluated during a period of high volume and high acuity during the global COVID-19 pandemic, and that diagnosis was suspected/considered upon their initial presentation. Their evaluation, treatment and testing was consistent with current guidelines for patients who present with complaints or symptoms that may be related to COVID-19. Patient was seen while provider was wearing PPE. Triage Nursing notes reviewed. Prior medical records reviewed Vital Signs: reviewed and remarkable for no significant abnormalities Differential diagnosis: Mood disorder, infection, hypoglycemia, electrolyte abnormalities, cardiac sources, intracerebral event, toxicologic, trauma, neurologic, as well as other pathologies. ER treatment provided: See below Laboratory studies: As stated above and show below. Imaging studies: See below Consultation(s): Mood disorder, infection, hypoglycemia, electrolyte abnormalities, cardiac sources, intracerebral event, toxicologic, trauma, neurologic, as well as other pathologies. Past Med/Surg History Medical History History of diverticulitis of colon History of fracture of humerus History of Helicobacter pylori infection History of hypokalemia Surgical History Status post repair of nerve neuroplasty decompression median nerve at carpal tunnel right Family History Mother , age 65 Depression Diabetes Necrosis of intestine Father Depression Hypertension Denies family history of Crohn's disease Colorectal cancer Irritable bowel syndrome Social History Smoking Status: Never smoker Hx Alcohol Use: No Hx Substance Use: Yes Preferred Language: Kiswahili Communication Ability: Effective Flat Optical Element Maker Required: No Beliefs That Will Affect Care: None marital status: / Feels Safe at Home: Yes Physical Activity Frequency: Does not Exercise Assistive Devices: None Allergies Allergies Allergy/AdvReac Type Severity Reaction Status Date / Time adhesive Allergy Intermediate PAPER TAPE Verified 04/28/21 10:37 - SKIN IRRITATION moxifloxacin Allergy Verified 04/28/21 10:37 ibuprofen AdvReac Intermediate UPSET Verified 04/28/21 10:37 STOMACH amoxicillin AdvReac Unknown Abdominal Verified 04/28/21 10:37 pain and nausea clavulanic acid AdvReac Unknown Abdominal Verified 04/28/21 10:37 pain and nausea amitriptyline AdvReac head fog Verified 04/28/21 10:37 clarithromycin AdvReac nausea. Verified 04/28/21 10:37 vomiting metformin AdvReac GI upset Verified 04/28/21 10:37 Home Meds Home Medications Medication Instructions Recorded Confirmed No Known Home Medications 05/27/21 05/27/21 Results & Data (ED) Vital Signs Vital Signs - 24 hr 05/27/21 10:23 Temperature 36.7 C Temperature Source Temporal Artery Scan Pulse Rate 117 H Respiratory Rate 18 Respiratory Effort / Characteristics Non-Labored Respiratory Depth Normal Respiratory Pattern Regular Blood Pressure 112/71 Blood Pressure Mean 84 Blood Pressure Position Sitting Pulse Oximetry 96 Oxygen Delivery Method Room Air Sepsis Recent Fever Within 48 Hours No Sepsis New/Unexplained Change in Mental Status No Sepsis Action Taken by Nursing No Action Required Laboratory Data Result diagrams: 05/27/21 10:59 05/27/21 10:59 Lab Results 05/27/21 05/27/21 05/27/21 Range/Units 10:59 10:59 10:59 WBC 6.27 (4.8-10.8) K/uL RBC 3.94 L (4.2-5.4) M/uL Hgb 13.4 (12.0-16.0) g/dL Hct 39.3 (37-47) % MCV 99.7 (80-100) fL MCH 34.0 (25-34) pg MCHC 34.1 (32-36) g/dL RDW Std Deviation 46.1 (36.4-46.3) fL RDW Coeff of Genet 12.5 (11.5-14.5) % Plt Count 334 (130-400) K/uL MPV 9.8 (7.4-10.4) fL Immature Gran % (Auto) 0.2 % Neut % (Auto) 50.5 % Lymph % (Auto) 41.1 % [place] % (Auto) 6.1 % Eos % (Auto) 1.6 % Baso % (Auto) 0.5 % Neut # (Auto) 3.17 (1.4-6.5) K/uL Lymph # (Auto) 2.58 (1.2-3.4) K/uL [place] # (Auto) 0.38 (0.11-0.59) K/uL Eos # (Auto) 0.10 (0-0.5) K/uL Baso # (Auto) 0.03 (0-0.2) K/uL Immature Gran # (Auto) 0.01 (0.00-0.02) K/uL Sodium 139 (136-145) mmol/L Potassium 4.5 (3.5-5.1) mmol/L Chloride 107 (98-107) mmol/L Carbon Dioxide 28 (21-32) mmol/L Anion Gap 4.0 (3-11) BUN 22 H (7-18) mg/dl Creatinine 0.73 (0.6-1.2) mg/dl Est Cr Clr Drug Dosing 68.9 ml/min Est GFR ( Amer) 107.5 ml/min Est GFR (Non-Af Amer) 92.7 ml/min BUN/Creatinine Ratio 29.6 H (10-20) Glucose 95 (70-99) mg/dl Calcium 9.0 (8.5-10.1) mg/dl Total Bilirubin 0.2 (0.2-1) mg/dl AST 13 L (15-37) U/L ALT 27 (12-78) U/L Alkaline Phosphatase 60 (45-117) U/L Total Protein 6.8 (6.4-8.2) gm/dl Albumin 3.6 (3.4-5.0) gm/dl Globulin 3.2 (2.5-4.0) gm/dl Albumin/Globulin Ratio 1.1 (0.9-2) TSH 0.478 (0.300-4.500) uIu/ml Urine Color Urine Appearance (Clear) Urine pH (4.5-7.5) Ur Specific [place] (1.000-1.030) Urine Protein (Negative) Urine Glucose (UA) (Negative) Urine Ketones (Negative) Urine Blood (Negative) Urine Nitrite (Negative) Urine Bilirubin (Negative) Urine Urobilinogen (Negative) Ur Leukocyte Esterase (Negative) Salicylates < 1.7 L (2.8-20) mg/dl Urine Opiates Screen (Neg) Ur Methadone, Qual (Neg) Acetaminophen < 2 L (10-30) ug/ml Urine Barbiturates (Neg) Ur Phencyclidine (PCP) (Neg) U Amphetamin/Meth Scrn (Neg) MDMA (Ecstasy) Screen (Neg) U Benzodiazepines Scrn (Neg) Ur Cocaine Metabolite (Neg) U Marijuana (THC) Screen (Neg) U Marijuana THC Carboxy (<5) ng/mL Drug Screen Comment Ethyl Alcohol mg/dL (0-3) mg/dl COVID-19 Eval Order SARS-CoV-2 (PCR) (Negative) 05/27/21 05/27/21 05/27/21 Range/Units 10:59 11:07 11:07 WBC (4.8-10.8) K/uL RBC (4.2-5.4) M/uL Hgb (12.0-16.0) g/dL Hct (37-47) % MCV (80-100) fL MCH (25-34) pg MCHC (32-36) g/dL RDW Std Deviation (36.4-46.3) fL RDW Coeff of Genet (11.5-14.5) % Plt Count (130-400) K/uL MPV (7.4-10.4) fL Immature Gran % (Auto) % Neut % (Auto) % Lymph % (Auto) % [place] % (Auto) % Eos % (Auto) % Baso % (Auto) % Neut # (Auto) (1.4-6.5) K/uL Lymph # (Auto) (1.2-3.4) K/uL [place] # (Auto) (0.11-0.59) K/uL Eos # (Auto) (0-0.5) K/uL Baso # (Auto) (0-0.2) K/uL Immature Gran # (Auto) (0.00-0.02) K/uL Sodium (136-145) mmol/L Potassium (3.5-5.1) mmol/L Chloride (98-107) mmol/L Carbon Dioxide (21-32) mmol/L Anion Gap (3-11) BUN (7-18) mg/dl Creatinine (0.6-1.2) mg/dl Est Cr Clr Drug Dosing ml/min Est GFR ( Amer) ml/min Est GFR (Non-Af Amer) ml/min BUN/Creatinine Ratio (10-20) Glucose (70-99) mg/dl Calcium (8.5-10.1) mg/dl Total Bilirubin (0.2-1) mg/dl AST (15-37) U/L ALT (12-78) U/L Alkaline Phosphatase (45-117) U/L Total Protein (6.4-8.2) gm/dl Albumin (3.4-5.0) gm/dl Globulin (2.5-4.0) gm/dl Albumin/Globulin Ratio (0.9-2) TSH (0.300-4.500) uIu/ml Urine Color Yellow Urine Appearance Clear (Clear) Urine pH 6.5 (4.5-7.5) Ur Specific [place] 1.003 (1.000-1.030) Urine Protein Negative (Negative) Urine Glucose (UA) Negative (Negative) Urine Ketones Negative (Negative) Urine Blood Negative (Negative) Urine Nitrite Negative (Negative) Urine Bilirubin Negative (Negative) Urine Urobilinogen Negative (Negative) Ur Leukocyte Esterase Negative (Negative) Salicylates (2.8-20) mg/dl Urine Opiates Screen Neg (Neg) Ur Methadone, Qual Neg (Neg) Acetaminophen (10-30) ug/ml Urine Barbiturates Neg (Neg) Ur Phencyclidine (PCP) Neg (Neg) U Amphetamin/Meth Scrn Neg (Neg) MDMA (Ecstasy) Screen Neg (Neg) U Benzodiazepines Scrn Neg (Neg) Ur Cocaine Metabolite Neg (Neg) U Marijuana (THC) Screen Pos H (Neg) U Marijuana THC Carboxy (<5) ng/mL Drug Screen Comment Ethyl Alcohol mg/dL < 3.0 (0-3) mg/dl COVID-19 Eval Order SARS-CoV-2 (PCR) (Negative) 05/27/21 05/27/21 05/27/21 Range/Units 11:07 14:00 14:00 WBC (4.8-10.8) K/uL RBC (4.2-5.4) M/uL Hgb (12.0-16.0) g/dL Hct (37-47) % MCV (80-100) fL MCH (25-34) pg MCHC (32-36) g/dL RDW Std Deviation (36.4-46.3) fL RDW Coeff of Genet (11.5-14.5) % Plt Count (130-400) K/uL MPV (7.4-10.4) fL Immature Gran % (Auto) % Neut % (Auto) % Lymph % (Auto) % [place] % (Auto) % Eos % (Auto) % Baso % (Auto) % Neut # (Auto) (1.4-6.5) K/uL Lymph # (Auto) (1.2-3.4) K/uL [place] # (Auto) (0.11-0.59) K/uL Eos # (Auto) (0-0.5) K/uL Baso # (Auto) (0-0.2) K/uL Immature Gran # (Auto) (0.00-0.02) K/uL Sodium (136-145) mmol/L Potassium (3.5-5.1) mmol/L Chloride (98-107) mmol/L Carbon Dioxide (21-32) mmol/L Anion Gap (3-11) BUN (7-18) mg/dl Creatinine (0.6-1.2) mg/dl Est Cr Clr Drug Dosing ml/min Est GFR ( Amer) ml/min Est GFR (Non-Af Amer) ml/min BUN/Creatinine Ratio (10-20) Glucose (70-99) mg/dl Calcium (8.5-10.1) mg/dl Total Bilirubin (0.2-1) mg/dl AST (15-37) U/L ALT (12-78) U/L Alkaline Phosphatase (45-117) U/L Total Protein (6.4-8.2) gm/dl Albumin (3.4-5.0) gm/dl Globulin (2.5-4.0) gm/dl Albumin/Globulin Ratio (0.9-2) TSH (0.300-4.500) uIu/ml Urine Color Urine Appearance (Clear) Urine pH (4.5-7.5) Ur Specific [place] (1.000-1.030) Urine Protein (Negative) Urine Glucose (UA) (Negative) Urine Ketones (Negative) Urine Blood (Negative) Urine Nitrite (Negative) Urine Bilirubin (Negative) Urine Urobilinogen (Negative) Ur Leukocyte Esterase (Negative) Salicylates (2.8-20) mg/dl Urine Opiates Screen (Neg) Ur Methadone, Qual (Neg) Acetaminophen (10-30) ug/ml Urine Barbiturates (Neg) Ur Phencyclidine (PCP) (Neg) U Amphetamin/Meth Scrn (Neg) MDMA (Ecstasy) Screen (Neg) U Benzodiazepines Scrn (Neg) Ur Cocaine Metabolite (Neg) U Marijuana (THC) Screen (Neg) U Marijuana THC Carboxy 57 H (<5) ng/mL Drug Screen Comment SEE NOTE Ethyl Alcohol mg/dL (0-3) mg/dl COVID-19 Eval Order Covid19 at [facility] SARS-CoV-2 (PCR) NEGATIVE (Negative) Administered Medications Acetaminophen (Acetaminophen 325 Mg Tab) 650 mg PO Q4H PRN PRN Reason: Headache or Minor Fever Stop: 06/26/21 16:14 Last Admin: 05/30/21 11:51 Dose: 650 mg Documented by: [id number] Hydroxyzine HCl (Hydroxyzine Hcl 25 Mg Tab) 50 mg PO HSZ PRN PRN Reason: Insomnia Stop: 06/26/21 16:14 Last Admin: 05/29/21 21:25 Dose: 50 mg Documented by: [id number] Lorazepam (Lorazepam 1 Mg Tab) 1 mg PO Q6 PRN PRN Reason: Anxiety Stop: 06/26/21 16:16 Last Admin: 05/30/21 13:29 Dose: 1 mg Documented by: [id number] Admin: 05/29/21 19:30 Dose: 1 mg Documented by: [id number] Admin: 05/29/21 13:36 Dose: 1 mg Documented by: [id number] Admin: 05/28/21 17:40 Dose: 1 mg Documented by: [id number] Admin: 05/28/21 11:11 Dose: 1 mg Documented by: [id number] Admin: 05/27/21 20:03 Dose: 1 mg Documented by: [id number] Quetiapine Fumarate (Quetiapine Fumarate 25 Mg Tablet) 25 mg PO Q4 PRN PRN Reason: Anxiety/Agitation Stop: 06/27/21 12:39 Last Admin: 05/30/21 16:01 Dose: 25 mg Documented by: [id number] Admin: 05/29/21 14:50 Dose: 25 mg Documented by: [id number] Discontinued Medications Quetiapine Fumarate (Quetiapine Fumarate 25 Mg Tablet) 50 mg PO HS ANNE Stop: 06/27/21 21:59 Last Admin: 05/29/21 21:19 Dose: Not Given Documented by: [id number] Admin: 05/28/21 21:16 Dose: 50 mg Documented by: [id number] Discharge Plan Visit Data Chief Complaint: Mental Health Evaluation Stated Complaint: MENTAL HEALTH EVALUATION ED Provider: Keven Adams Discharge Problem: Mood disorder Patient Disposition: Admitted As Inpatient Discharge Instructions Interventions: ED Discharge Assessment Last Done: 05/27/21 16:30
[2021-05-27] MEDS ORDERED: ACETAMINOPHEN 325 MG TAB PO PRN (16:15)
[2021-05-27] MEDS ORDERED: hydrOXYzine HCl 25 MG TAB PO PRN ×2 (16:15)
[2021-05-27] MEDS ORDERED: MAGNESIUM HYDROXIDE SUSP 30 ML UDC PO PRN (16:15)
[2021-05-27] MEDS ORDERED: BISMUTH SUBSALICYLATE LIQD 236 ML PO PRN (16:15)
[2021-05-27] MEDS ORDERED: ALUMINUM/MAGNESIUM SUSP 30 ML UDC PO PRN (16:15)
[2021-05-27] MEDS ORDERED: SODIUM CHLORIDE 0.65% NA SOLN 45 ML (OCEAN) PRN (16:15)
[2021-05-27] MEDS ORDERED: traZODone HCL 50 MG TAB PO PRN (16:18)
[2021-05-27] MEDS: LORazepam 1 MG TAB PO PRN (20:03)
[2021-05-28] MEDS: LORazepam 1 MG TAB PO PRN ×2 (11:11→17:40)
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
[2021-05-28] MEDS: QUEtiapine FUMARATE 25 MG TABLET PO SCH (21:16)
[2021-05-28 22:17] LABS: Marijuana Quant, GCMS Urine 57 ng/mL (<5)
--- NOTE | 2021-05-29 09:21 | Psychiatric Progress Note ---
Date of Service May 29, 2021 Impression / Recommendations Impression 55 yo female with a history of recurrent depression (post- and psychosis) with intermittent hospitalizations for paranoia, strong family history of bipolar disorder and schizophrenia (and suicide with the latter) presents with reports of complex PTSD symptoms, increase in agitation to point of requiring physical restraint by son so doesn't scratch self open or hit head. She has been too disorganized to truly answer questions re: SI and was admitted due to reports of thoughts to find a gun or strike self in the head with a hammer. Impression: remains labile and in need of MNPR, complies with some treatment. (1) Bipolar 1 disorder, mixed: 05/29/21--am labs pending, Risks/benefits/alternatives were reviewed re: antipsychotics for mood and/or psychosis. Discussion included but was not limited to metabolic side effects, risks of TD and suicidal thoughts. There were no abnormal motor movements at baseline. She is unsure she will continue Seroquel as "I feel a little funny this am" and reviewed that am vitals good and it is recommended to treat her condition. Will keep dose at Seroquel 50 mg this hs as slept and has been receiving with some prn Ativan with hope she will remain compliant and allow titration. If she refuses medication and remains irritable/disorganized she may need converted to an involuntary commitment. Patient aware Dr. De Souza to assume care at 5 pm today. 05/28/21--The patient was admitted to the [facility] ([facility] mental health unit) on q15 min checks (behavioral with suicide precautions) for safety. The patient will participate in group, recreational, and milieu therapies and will be offered additional individual and family sessions as clinically appropriate. The patient is not currently able to fully discuss risks/benefits of mood stabilizers, will be offered a trial dose of Seroquel 50 mg this hs as well as 25 mg prn dosing. She does have a dx of diabetes in [employer] so attempt HgbA1C with lipid profile in am. Inventory Assets Strengths: verbal, lives with a relative Needs: increase insight into condition and need for mood stabilizing medication Risk Factors Assessment Male: No : Yes Do You Have Access To A Gun?: No (apparently a past friend had one, denies currently but will confirm) Mental Health Diagnoses: Yes Substance Use Disorders: No Previous Attempt: No (denies) Previous Psychiatric Hospitalization: Yes Protective Factors Assessment Employed: No Supportive Family: Yes Interval History Identifying Information 55 yo female admit 05/27/21 on a 201 commitment for disorganized anxiety with thoughts to self injure. Chief Complaint "yeah, I guess I slept but I'm in general not sure about all this. I still need something done about those doctors". Review of Systems Sleep Information Total Hours of Sleep: 8.75 Meal Information Percent Meal Consumed - Breakfast: 80 Percent Meal Consumed - Lunch: 90 Percent Meal Consumed - Dinner: 20 Subjective Subjective Patient was seen & assessed and interval progress reviewed with treatment team. Very irritable and labile yesterday, topless much of day shift. Did accept Ativan prn and ultimately hs Seroquel and notes improved sleep. Had verbal outbursts every time attempts phone call to son. No SIB, does swear at staff. She is eating. short in conversation after slamming door. Physical Exam Psychiatric Orientation: alert and oriented x 3 Apperance: appropriately groomed Eye Contact: good eye contact Motor Behavior: no abnormal motor movements Affect: + anxious affect Mood: + irritable mood Thought Process: + circumstantial thought process Suicidal Thoughts: denies suicidal thoughts Homicidal Thoughts: denies homicidal thoughts Hallucinations: no auditory hallucinations and no visual hallucinations Cognition: language grossly intact; + attention not intact Estimated Intelligence: consistent with education level Insight: + poor insight Judgement: + poor judgement Vital Signs (Past 24 Hours) Last Vital Signs Temp 36.8 C 05/29/21 06:46 Pulse 82 05/29/21 06:47 Resp 16 05/29/21 06:46 BP 107/75 05/29/21 06:47 Pulse Ox 98 05/27/21 17:00 Results & Data ([facility]) Laboratory Results Laboratory Results - last 24 hr 05/27/21 05/29/21 05/29/21 11:07 08:18 08:18 Estimat Average Glucose Pending Hemoglobin A1c Pending Triglycerides Pending Cholesterol Pending LDL Cholesterol, Calc Pending VLDL Cholesterol, Calc Pending HDL Cholesterol Pending Cholesterol/HDL Ratio Pending U Marijuana THC Carboxy 57 H Drug Screen Comment SEE NOTE Current Inpatient Medications Current Inpatient Medications: Current Inpatient Medications Acetaminophen (Acetaminophen 325 Mg Tab) 650 mg PO Q4H PRN PRN Reason: Headache or Minor Fever Stop: 06/26/21 16:14 Al Hydrox/Mg Hydrox/Simethicone (Aluminum/Magnesium Susp 30 Ml Udc) 30 ml PO Q4H PRN PRN Reason: GI Upset Stop: 06/26/21 16:14 Bismuth Subsalicylate (Bismuth Subsalicylate Liqd 236 Ml) 15 ml PO PRN PRN PRN Reason: Loose Stool Stop: 06/26/21 16:14 Hydroxyzine HCl (Hydroxyzine Hcl 25 Mg Tab) 50 mg PO HSZ PRN PRN Reason: Insomnia Stop: 06/26/21 16:14 Lorazepam (Lorazepam 1 Mg Tab) 1 mg PO Q6 PRN PRN Reason: Anxiety Stop: 06/26/21 16:16 Last Admin: 05/28/21 17:40 Dose: 1 mg Documented by: Magnesium Hydroxide (Magnesium Hydroxide Susp 30 Ml Udc) 30 ml PO DAILY PRN PRN Reason: Constipation Stop: 06/26/21 16:14 Quetiapine Fumarate (Quetiapine Fumarate 25 Mg Tablet) 25 mg PO Q4 PRN PRN Reason: Anxiety/Agitation Stop: 06/27/21 12:39 Quetiapine Fumarate (Quetiapine Fumarate 25 Mg Tablet) 50 mg PO HS ANNE Stop: 06/27/21 21:59 Last Admin: 05/28/21 21:16 Dose: 50 mg Documented by: Sodium Chloride (Sodium Chloride 0.65% Na Soln 45 Ml ([place])) 1 - 2 sprays NA PRN PRN PRN Reason: Nasal Dryness/Congestion Stop: 06/26/21 16:14 Mental Health & Subst Abuse Tx Therapist Name of Therapist: None Design Maintenance Engineer Name of Design Maintenance Engineer: None Post Discharge Appointments Primary Care Physician Name Of Family Doctor: Kanu
[2021-05-29 09:29] LABS: Chol HDL Ratio 3; Cholesterol 204 mg/dl (0-200); HDL Cholesterol 64 mg/dl; LDL Cholesterol Calculated 114 mg/dl; Triglycerides 132 mg/dl (0-150); VLDL Cholesterol 26 mg/dl
[2021-05-29 10:07] LABS: Estimated Average Glucose 126 mg/dl
[2021-05-29] MEDS: LORazepam 1 MG TAB PO PRN ×2 (13:36→19:30)
[2021-05-29] MEDS: QUEtiapine FUMARATE 25 MG TABLET PO PRN (14:50)
[2021-05-29] MEDS: QUEtiapine FUMARATE 25 MG TABLET PO SCH (21:19)
[2021-05-30] MEDS: LORazepam 1 MG TAB PO PRN (13:29)
--- NOTE | 2021-05-30 15:40 | Psychiatric Progress Note ---
Date of Service May 30, 2021 Impression / Recommendations Impression 55 yo female with a history of recurrent depression (post- and psychosis) with intermittent hospitalizations for paranoia, strong family history of bipolar disorder and schizophrenia (and suicide with the latter) presents with reports of complex PTSD symptoms, increase in agitation to point of requiring physical restraint by son so doesn't scratch self open or hit head. She has been too disorganized to truly answer questions re: SI and was admitted due to reports of thoughts to find a gun or strike self in the head with a hammer. Impression: remains labile and in need of MNPR, complies with some treatment. (1) Bipolar 1 disorder, mixed: 05/30/2021will increase nightly Seroquel to 100 mg po qhs. Patient seems to be responding well at this time as she has shown a change in behavior for the better, despite not wanting to speak to quality analyst/technical writer. 05/29/21--am labs pending, Risks/benefits/alternatives were reviewed re: antipsychotics for mood and/or psychosis. Discussion included but was not limited to metabolic side effects, risks of TD and suicidal thoughts. There were no abnormal motor movements at baseline. She is unsure she will continue Seroquel as "I feel a little funny this am" and reviewed that am vitals good and it is recommended to treat her condition. Will keep dose at Seroquel 50 mg this hs as slept and has been receiving with some prn Ativan with hope she will remain compliant and allow titration. If she refuses medication and remains irritable/disorganized she may need converted to an involuntary commitment. Patient aware Dr. De Souza to assume care at 5 pm today. 05/28/21--The patient was admitted to the [facility] ([facility] mental health unit) on q15 min checks (behavioral with suicide precautions) for safety. The patient will participate in group, recreational, and milieu therapies and will be offered additional individual and family sessions as clinically appropriate. The patient is not currently able to fully discuss risks/benefits of mood stabilizers, will be offered a trial dose of Seroquel 50 mg this hs as well as 25 mg prn dosing. She does have a dx of diabetes in [employer] so attempt HgbA1C with lipid profile in am. Inventory Assets Strengths: verbal, lives with a relative Needs: increase insight into condition and need for mood stabilizing medication Risk Factors Assessment Male: No : Yes Do You Have Access To A Gun?: No (apparently a past friend had one, denies currently but will confirm) Mental Health Diagnoses: Yes Substance Use Disorders: No Previous Attempt: No (denies) Previous Psychiatric Hospitalization: Yes Protective Factors Assessment Employed: No Supportive Family: Yes Interval History Identifying Information 55 yo female admit 05/27/21 on a 201 commitment for disorganized anxiety with thoughts to self injure. Chief Complaint "I'm trying to sleep". Review of Systems Sleep Information Total Hours of Sleep: 6 Sleep Comments: Pt stated that she slept well. Meal Information Percent Meal Consumed - Breakfast: 100 Percent Meal Consumed - Lunch: 10 Percent Meal Consumed - Dinner: 100 Subjective Subjective Patient was seen & assessed and interval progress reviewed with treatment team nursing and social work. Patient was in her room today, would not awaken for quality analyst/technical writer. Asked to be left to continue to sleep. Per report patient has been in good behavioral control without any outbursts although still remains tangential and difficult to redirect at times as well as making nonsensical statements. I spent 30 minutes with the patient, 50% of which was dedicated to counselling and coordination of care. Physical Exam Psychiatric Orientation: alert and oriented x 3 Apperance: appropriately groomed Eye Contact: good eye contact Motor Behavior: no abnormal motor movements Speech: + pressured speech Affect: + anxious affect Mood: + irritable mood Thought Process: + circumstantial thought process and + tangential thought process Suicidal Thoughts: denies suicidal thoughts Homicidal Thoughts: denies homicidal thoughts Hallucinations: no auditory hallucinations and no visual hallucinations Cognition: language grossly intact; + attention not intact Estimated Intelligence: consistent with education level Insight: + poor insight Judgement: + poor judgement Vital Signs (Past 24 Hours) Last Vital Signs Temp 36.8 C 05/30/21 06:00 Pulse 66 05/30/21 06:10 Resp 18 05/30/21 06:00 BP 94/65 L 05/30/21 06:10 Pulse Ox 98 05/27/21 17:00 Results & Data ([facility]) Current Inpatient Medications Current Inpatient Medications: Current Inpatient Medications Acetaminophen (Acetaminophen 325 Mg Tab) 650 mg PO Q4H PRN PRN Reason: Headache or Minor Fever Stop: 06/26/21 16:14 Last Admin: 05/30/21 11:51 Dose: 650 mg Documented by: Al Hydrox/Mg Hydrox/Simethicone (Aluminum/Magnesium Susp 30 Ml Udc) 30 ml PO Q4H PRN PRN Reason: GI Upset Stop: 06/26/21 16:14 Bismuth Subsalicylate (Bismuth Subsalicylate Liqd 236 Ml) 15 ml PO PRN PRN PRN Reason: Loose Stool Stop: 06/26/21 16:14 Hydroxyzine HCl (Hydroxyzine Hcl 25 Mg Tab) 50 mg PO HSZ PRN PRN Reason: Insomnia Stop: 06/26/21 16:14 Last Admin: 05/29/21 21:25 Dose: 50 mg Documented by: Lorazepam (Lorazepam 1 Mg Tab) 1 mg PO Q6 PRN PRN Reason: Anxiety Stop: 06/26/21 16:16 Last Admin: 05/30/21 13:29 Dose: 1 mg Documented by: Magnesium Hydroxide (Magnesium Hydroxide Susp 30 Ml Udc) 30 ml PO DAILY PRN PRN Reason: Constipation Stop: 06/26/21 16:14 Quetiapine Fumarate (Quetiapine Fumarate 25 Mg Tablet) 25 mg PO Q4 PRN PRN Reason: Anxiety/Agitation Stop: 06/27/21 12:39 Last Admin: 05/29/21 14:50 Dose: 25 mg Documented by: Quetiapine Fumarate (Quetiapine Fumarate 25 Mg Tablet) 50 mg PO HS ANNE Stop: 06/27/21 21:59 Last Admin: 05/29/21 21:19 Dose: Not Given Documented by: Sodium Chloride (Sodium Chloride 0.65% Na Soln 45 Ml ([place])) 1 - 2 sprays NA PRN PRN PRN Reason: Nasal Dryness/Congestion Stop: 06/26/21 16:14 Mental Health & Subst Abuse Tx Therapist Name of Therapist: None Electric Knife Operator Name of Electric Knife Operator: Hyacinth Electric Knife Operator - Aliza Case Management Appointment Comment: Will follow up with you after discharge Post Discharge Appointments Primary Care Physician Name Of Family Doctor: Kanu Contact Information Discharge Discharge Address: [address] [place] [address], [address]
[2021-05-30] MEDS: QUEtiapine FUMARATE 25 MG TABLET PO PRN (16:01)
[2021-05-30] MEDS ORDERED: QUEtiapine FUMARATE 100 MG TABLET PO SCH (22:00)
--- NOTE | 2021-05-31 14:46 | Psychiatric Progress Note ---
Date of Service May 31, 2021 Impression / Recommendations Impression 55 yo female with a history of recurrent depression (post- and psychosis) with intermittent hospitalizations for paranoia, strong family history of bipolar disorder and schizophrenia (and suicide with the latter) presents with reports of complex PTSD symptoms, increase in agitation to point of requiring physical restraint by son so doesn't scratch self open or hit head. She has been too disorganized to truly answer questions re: SI and was admitted due to reports of thoughts to find a gun or strike self in the head with a hammer. Impression: remains labile and in need of MNPR, complies with some treatment. (1) Bipolar 1 disorder, mixed: 05/30/2021will increase nightly Seroquel to 100 mg po qhs. Patient seems to be responding well at this time as she has shown a change in behavior for the better, despite not wanting to speak to technical publications writer. 05/29/21--am labs pending, Risks/benefits/alternatives were reviewed re: antipsychotics for mood and/or psychosis. Discussion included but was not limited to metabolic side effects, risks of TD and suicidal thoughts. There were no abnormal motor movements at baseline. She is unsure she will continue Seroquel as "I feel a little funny this am" and reviewed that am vitals good and it is recommended to treat her condition. Will keep dose at Seroquel 50 mg this hs as slept and has been receiving with some prn Ativan with hope she will remain compliant and allow titration. If she refuses medication and remains irritable/disorganized she may need converted to an involuntary commitment. Patient aware Dr. De Souza to assume care at 5 pm today. 05/28/21--The patient was admitted to the [facility] on q15 min checks (behavioral with suicide precautions) for safety. The patient will participate in group, recreational, and milieu therapies and will be offered additional individual and family sessions as clinically appropriate. The patient is not currently able to fully discuss risks/benefits of mood stabilizers, will be offered a trial dose of Seroquel 50 mg this hs as well as 25 mg prn dosing. She does have a dx of diabetes in [facility] so attempt HgbA1C with lipid profile in am. Inventory Assets Strengths: verbal, lives with a relative Needs: increase insight into condition and need for mood stabilizing medication Risk Factors Assessment Male: No : Yes Do You Have Access To A Gun?: No (apparently a past friend had one, denies currently but will confirm) Mental Health Diagnoses: Yes Substance Use Disorders: No Previous Attempt: No (denies) Previous Psychiatric Hospitalization: Yes Protective Factors Assessment Employed: No Supportive Family: Yes Interval History Identifying Information 55 yo female admit 05/27/21 on a 201 commitment for disorganized anxiety with thoughts to self injure. Chief Complaint "I slept well last night". Review of Systems Sleep Information Total Hours of Sleep: 6.25 Sleep Comments: Pt stated that she slept well. Meal Information Percent Meal Consumed - Breakfast: 75 Percent Meal Consumed - Lunch: 80 Percent Meal Consumed - Dinner: 80 Subjective Subjective Patient was seen & assessed and interval progress reviewed with treatment team nursing and social work. Patient reports good effect of Seroquel medication last night, which she stated helped her to sleep as well as helped her thoughts to be more organized today. Patient did display some bizarre behavior such as crouching on her bathroom countertop as well as some off-topic comments made during group. Despite this she has been compliant with staff redirection and interacting appropriately with peers. Patient is somewhat hesitant to accept increasing doses of Seroquel, but in light of her improvement of sleep yesterday she is willing to increase the dosage to 150 mg p.o. nightly tonight. No side effects of the medication reported or observed. Appetite remains strong, sleep is improving at estimated 6.25 hours. Physical Exam Psychiatric Orientation: alert and oriented x 3 Apperance: appropriately groomed Eye Contact: good eye contact Motor Behavior: no abnormal motor movements Speech: + pressured speech Affect: + anxious affect Mood: + irritable mood Thought Process: + circumstantial thought process and + tangential thought process Suicidal Thoughts: denies suicidal thoughts Homicidal Thoughts: denies homicidal thoughts Hallucinations: no auditory hallucinations and no visual hallucinations Cognition: language grossly intact; + attention not intact Estimated Intelligence: consistent with education level Insight: + poor insight Judgement: + poor judgement Vital Signs (Past 24 Hours) Last Vital Signs Temp 36.6 C 05/31/21 06:00 Pulse 88 05/31/21 06:18 Resp 16 05/31/21 06:00 BP 108/77 05/31/21 06:18 Pulse Ox 98 05/27/21 17:00 Results & Data ([facility]) Current Inpatient Medications Current Inpatient Medications: Current Inpatient Medications Acetaminophen (Acetaminophen 325 Mg Tab) 650 mg PO Q4H PRN PRN Reason: Headache or Minor Fever Stop: 06/26/21 16:14 Last Admin: 05/30/21 11:51 Dose: 650 mg Documented by: Al Hydrox/Mg Hydrox/Simethicone (Aluminum/Magnesium Susp 30 Ml Udc) 30 ml PO Q4H PRN PRN Reason: GI Upset Stop: 06/26/21 16:14 Bismuth Subsalicylate (Bismuth Subsalicylate Liqd 236 Ml) 15 ml PO PRN PRN PRN Reason: Loose Stool Stop: 06/26/21 16:14 Hydroxyzine HCl (Hydroxyzine Hcl 25 Mg Tab) 50 mg PO HSZ PRN PRN Reason: Insomnia Stop: 06/26/21 16:14 Last Admin: 05/29/21 21:25 Dose: 50 mg Documented by: Lorazepam (Lorazepam 1 Mg Tab) 1 mg PO Q6 PRN PRN Reason: Anxiety Stop: 06/26/21 16:16 Last Admin: 05/30/21 13:29 Dose: 1 mg Documented by: Magnesium Hydroxide (Magnesium Hydroxide Susp 30 Ml Udc) 30 ml PO DAILY PRN PRN Reason: Constipation Stop: 06/26/21 16:14 Quetiapine Fumarate (Quetiapine Fumarate 25 Mg Tablet) 25 mg PO Q4 PRN PRN Reason: Anxiety/Agitation Stop: 06/27/21 12:39 Last Admin: 05/30/21 16:01 Dose: 25 mg Documented by: Quetiapine Fumarate (Quetiapine Fumarate 25 Mg Tablet) 150 mg PO HS ANNE Stop: 06/30/21 21:59 Sodium Chloride (Sodium Chloride 0.65% Na Soln 45 Ml ([place])) 1 - 2 sprays NA PRN PRN PRN Reason: Nasal Dryness/Congestion Stop: 06/26/21 16:14 Mental Health & Subst Abuse Tx Therapist Name of Therapist: None Material Loader Name of Material Loader: Hyacinth Material Loader - Aliza Case Management Appointment Comment: Will follow up with you after discharge Post Discharge Appointments Primary Care Physician Name Of Family Doctor: Kanu Contact Information Discharge Discharge Address: [address] [place] [address], [place], [place]
[2021-05-31] MEDS: LORazepam 1 MG TAB PO PRN (15:50)
[2021-05-31] MEDS ORDERED: QUEtiapine FUMARATE 25 MG TABLET PO SCH (22:00)
[2021-05-31] MEDS ORDERED: QUEtiapine FUMARATE 100 MG TABLET PO SCH (22:00)
--- NOTE | 2021-06-01 15:37 | Psychiatric Progress Note ---
Date of Service June 01, 2021 Impression / Recommendations Impression 55 yo female with a history of recurrent depression (post- and psychosis) with intermittent hospitalizations for paranoia, strong family history of bipolar disorder and schizophrenia (and suicide with the latter) presents with reports of complex PTSD symptoms, increase in agitation to point of requiring physical restraint by son so doesn't scratch self open or hit head. She has been too disorganized to truly answer questions re: SI and was admitted due to reports of thoughts to find a gun or strike self in the head with a hammer. Impression: remains labile and in need of MNPR, complies with some treatment. (1) Bipolar 1 disorder, mixed: 06/01/2021lan to increase dosage of Seroquel to 200 mg p.o. nightly. Patient is improving nicely and if tolerates dosage okay, can likely be discharged tomorrow. 05/30/2021will increase nightly Seroquel to 100 mg po qhs. Patient seems to be responding well at this time as she has shown a change in behavior for the better, despite not wanting to speak to sports book writer. 05/29/21--am labs pending, Risks/benefits/alternatives were reviewed re: antipsychotics for mood and/or psychosis. Discussion included but was not limited to metabolic side effects, risks of TD and suicidal thoughts. There were no abnormal motor movements at baseline. She is unsure she will continue Seroquel as "I feel a little funny this am" and reviewed that am vitals good and it is recommended to treat her condition. Will keep dose at Seroquel 50 mg this hs as slept and has been receiving with some prn Ativan with hope she will remain compliant and allow titration. If she refuses medication and remains irritable/disorganized she may need converted to an involuntary commitment. Patient aware Dr. De Souza to assume care at 5 pm today. 05/28/21--The patient was admitted to [facility]) on q15 min checks (behavioral with suicide precautions) for safety. The patient will participate in group, recreational, and milieu therapies and will be offered additional individual and family sessions as clinically appropriate. The patient is not currently able to fully discuss risks/benefits of mood stabilizers, will be offered a trial dose of Seroquel 50 mg this hs as well as 25 mg prn dosing. She does have a dx of diabetes in [facility] so attempt HgbA1 C with lipid profile in am. Inventory Assets Strengths: verbal, lives with a relative Needs: increase insight into condition and need for mood stabilizing medication Risk Factors Assessment Male: No : Yes Do You Have Access To A Gun?: No (apparently a past friend had one, denies currently but will confirm) Mental Health Diagnoses: Yes Substance Use Disorders: No Previous Attempt: No (denies) Previous Psychiatric Hospitalization: Yes Protective Factors Assessment Employed: No Supportive Family: Yes Interval History Identifying Information 55 yo female admit 05/27/21 on a 201 commitment for disorganized anxiety with thoughts to self injure. Chief Complaint "I'm feeling much better, thank you". Review of Systems Sleep Information Total Hours of Sleep: 7 Sleep Comments: pt on q-15 minute checks Meal Information Percent Meal Consumed - Breakfast: 100 Percent Meal Consumed - Lunch: 100 Percent Meal Consumed - Dinner: 100 Subjective Subjective Patient seen, chart reviewed and case discussed with treatment team, nursing and social work. Patient reports a good night of sleep and strong appetite. No side effects reported or observed. She is agreeable to increase the dosage of the Seroquel medication to a target of 200 mg p.o. nightly. Regarding mood, patient reports some improvement which they attribute to the medications as well as the therapy they have received on the unit. Patient's thinking has been more ordered she has been without any outbursts or episodes of irritability or aggression. I spent 30 minutes with the patient, 50% of which was dedicated to counselling and coordination of care. Physical Exam Psychiatric Orientation: alert and oriented x 3 Apperance: appropriately groomed Eye Contact: good eye contact Motor Behavior: no abnormal motor movements Speech: + pressured speech Affect: + anxious affect Mood: + irritable mood Thought Process: + circumstantial thought process and + tangential thought process Suicidal Thoughts: denies suicidal thoughts Homicidal Thoughts: denies homicidal thoughts Hallucinations: no auditory hallucinations and no visual hallucinations Cognition: language grossly intact; + attention not intact Estimated Intelligence: consistent with education level Insight: + poor insight Judgement: + poor judgement Vital Signs (Past 24 Hours) Last Vital Signs Temp 36.7 C 06/01/21 06:30 Pulse 88 06/01/21 06:31 Resp 16 06/01/21 06:30 BP 106/69 06/01/21 06:31 Pulse Ox 98 05/27/21 17:00 Results & Data ([facility]) Current Inpatient Medications Current Inpatient Medications: Current Inpatient Medications Acetaminophen (Acetaminophen 325 Mg Tab) 650 mg PO Q4H PRN PRN Reason: Headache or Minor Fever Stop: 06/26/21 16:14 Last Admin: 05/30/21 11:51 Dose: 650 mg Documented by: Al Hydrox/Mg Hydrox/Simethicone (Aluminum/Magnesium Susp 30 Ml Udc) 30 ml PO Q4H PRN PRN Reason: GI Upset Stop: 06/26/21 16:14 Bismuth Subsalicylate (Bismuth Subsalicylate Liqd 236 Ml) 15 ml PO PRN PRN PRN Reason: Loose Stool Stop: 06/26/21 16:14 Hydroxyzine HCl (Hydroxyzine Hcl 25 Mg Tab) 50 mg PO HSZ PRN PRN Reason: Insomnia Stop: 06/26/21 16:14 Last Admin: 05/29/21 21:25 Dose: 50 mg Documented by: Lorazepam (Lorazepam 1 Mg Tab) 1 mg PO Q6 PRN PRN Reason: Anxiety Stop: 06/26/21 16:16 Last Admin: 05/31/21 15:50 Dose: 1 mg Documented by: Magnesium Hydroxide (Magnesium Hydroxide Susp 30 Ml Udc) 30 ml PO DAILY PRN PRN Reason: Constipation Stop: 06/26/21 16:14 Quetiapine Fumarate (Quetiapine Fumarate 25 Mg Tablet) 25 mg PO Q4 PRN PRN Reason: Anxiety/Agitation Stop: 06/27/21 12:39 Last Admin: 05/30/21 16:01 Dose: 25 mg Documented by: Quetiapine Fumarate (Quetiapine Fumarate 100 Mg Tablet) 150 mg PO HS ANNE Stop: 06/30/21 21:59 Last Admin: 05/31/21 21:19 Dose: 150 mg Documented by: Sodium Chloride (Sodium Chloride 0.65% Na Soln 45 Ml ([place])) 1 - 2 sprays NA PRN PRN PRN Reason: Nasal Dryness/Congestion Stop: 06/26/21 16:14 Mental Health & Subst Abuse Tx Psychiatrist Name of Psychiatrist: Hyacinth Mckinley Psychiatrist's Date of Appointment with Psychiatrist: 06/05/21 Time of Appointment with Psychiatrist: 2:00 PM Psychiatric Appointment Comment: Telehealth Therapist Name of Therapist: None Licensed Therapist Name of Licensed Therapist: Hyacinth Licensed Therapist Jeremiah Abrams Case Management Appointment Comment: Will follow up with you after discharge Post Discharge Appointments Primary Care Physician Name Of Family Doctor: Namrata Hodge Primary [facility] Date of Appointment with PCP: 06/04/21 Time of Appointment with PCP: 3:00 PM (arrive by 2:45) Provider Appointment Comment: Bring photo ID and insurance card Other #1: Name of Aftercare Appointment: [facility] [employer] Phone Number of Aftercare Appointment: / Aftercare Appointment Comment: Call either number to establish a Licensed Therapist. Contact Information Discharge Discharge Address: [address] [place] [address], [place] [address], [place], [place]
[2021-06-01] MEDS ORDERED: QUEtiapine FUMARATE 200 MG TAB PO SCH (22:00)
[2021-06-02] MEDS: LORazepam 1 MG TAB PO PRN (05:39)
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
== END 2021-06-02 11:37 | disposition home or self-care (01) | DRG 885 ==
LOC: ED 10:17 → 3S 16:16
DX: Z88.8 Allergy status to other drugs, medicaments and biological substances; F43.10 Post-traumatic stress disorder, unspecified; E11.9 Type 2 diabetes mellitus without complications; Z81.8 Family history of other mental and behavioral disorders; Z88.1 Allergy status to other antibiotic agents; F39 Unspecified mood [affective] disorder